=== PATIENT | male | born 1945 | race Hispanic/Latino ===

== ENCOUNTER 2020-05-08 19:30 | Emergency (ER) | payer MEDICARE ==
[~2020-05-08] VITALS: Ht 180.3 cm; Wt 82.6 kg
[2020-05-08] MEDS ORDERED: ONDANSETRON HCL INJ 2MG/ML 2ML 2 MG/ML VIAL IV NR (20:06)
[2020-05-08] MEDS ORDERED: SODIUM CHLORIDE 0.9% 1000ML 1,000 ML ONE (20:09)
[2020-05-08] MEDS ORDERED: ONDANSETRON HCL INJ 2MG/ML 2ML 2 MG/ML VIAL ONE (20:09)
[2020-05-08] MEDS ORDERED: SODIUM CHLORIDE 0.9% 1000ML 1,000 ML IV ONE (20:15)
[2020-05-08 20:16] LABS: BASOPHILS % 0.3 % (0.0-1.0); EOSINOPHILS # (AUTO) 0.2 (0.0-0.4); EOSINOPHILS % 2.8 % (0.0-6.0); HEMATOCRIT 42.9 % (38.2-49.6); HEMOGLOBIN 14.8 g/dL (14.0-18.0); LYMPHOCYTES # (AUTO) 0.7 (1.0-3.2); LYMPHOCYTES % 8.4 % (18.0-39.1); MEAN CORPUSCULAR HEMOGLOBIN 33.4 pg (28-32); MEAN CORPUSCULAR HGB CONC 34.5 g/dL (31-35); MEAN CORPUSCULAR VOLUME 96.8 fL (81-99); MONOCYTES # (AUTO) 0.4 (0.2-0.8); MONOCYTES % 4.6 % (4.4-11.3); NEUTROPHILS # (AUTO) 7.2 (2.1-6.9); NEUTROPHILS % 83.6 % (38.7-80.0); PLATELET COUNT 134 x10e3/uL (140-360); RED BLOOD COUNT 4.43 x10e6/uL (4.3-5.7); RED CELL DISTRIBUTION WIDTH 12.9 % (11.7-14.4)
--- NOTE | 2020-05-08 20:22 | Diagnostic Imaging Report ---
EXAMINATION: PA and lateral views of the chest. COMPARISON: None CLINICAL HISTORY: Vomiting after eating shrimp DISCUSSION: Lines/tubes: None. Lungs: Lungs are well-inflated. Biapical pleuroparenchymal scarring. Linear opacities and increased lucency in the upper lobes likely reflect COPD changes and scarring. No consolidation or pulmonary edema. Pleura: There is no pleural effusion or pneumothorax. Heart and mediastinum: Cardiomediastinal silhouette is unremarkable. Pulmonary vasculature is normal. Bones and soft tissues: No acute bony abnormalities. Degenerative changes in the thoracic spine IMPRESSION: COPD changes, without acute cardiopulmonary abnormalities. Signed by: Dr. Darek Barboza M.D. on 05/08/2020 8:18 PM
[2020-05-08 20:32] LABS: ALANINE AMINOTRANSFERASE 46 IU/L (0-55); ALBUMIN 4.3 g/dL (3.5-5.0); ALBUMIN/GLOBULIN RATIO 1.5 (0.8-2.0); ALKALINE PHOSPHATASE 55 IU/L (40-150); ANION GAP 15.1 mmol/L (8-16); BLOOD UREA NITROGEN 12 mg/dL (7-26); BUN/CREATININE RATIO 14 (6-25); CALCIUM 9.2 mg/dL (8.4-10.2); CARBON DIOXIDE 25 mmol/L (22-29); CHLORIDE 103 mmol/L (98-107); CREATINE KINASE 185 IU/L (30-200); CREATININE, SERUM 0.83 mg/dL (0.72-1.25); EST GLOMERULAR FILTRATION RATE > 60 ML/MIN (60-); GLUCOSE 153 mg/dL (74-118); POTASSIUM 4.1 mmol/L (3.5-5.1); SODIUM 139 mmol/L (136-145)
--- NOTE | 2020-05-08 21:20 | Emergency Department Note ---
History of Present Illnes History of Present Illness Chief Complaint: Abdominal Complaints History of Present Illness This is a 75 year old male arrives to the ED with complaints of nausea after having day old shrimp and beer. Patient denies any abdominal pain, denies any fever or chills. Patient is a diabetic but denies any chest pain.. Historian: Patient Arrival Mode: Car 411 Directory Assistance Operator Required: No Onset (how long ago): hour(s) Radiation: Reports non-radiation Severity: mild Duration (how long): hour(s) Timing of current episode: intermittent Progression: unchanged Relieving factors: none Exacerbating factors: none Past Medical/Family History Physician Review I have reviewed the patient's past medical and family history. Any updates have been documented here. Past Medical History Recent Fever: No Clinical Suspicion of Infectio: No New/Unexplained Change in Ment: No Past Medical History: Hypertension, Diabetes Other Medical History: BPH Past Surgical History: None Social History Smoking Cessation: Never Smoker Counseling Performed: No Alcohol Use: Daily Any Illegal Drug Use: No TB Exposure/Symptoms: No Physically hurt or threatened: No Family History Family history of heart diseas: No Other Last Tetanus: UTD Any Pre-Existing Lines (PICC,: No Is patient up to date on immun: Yes Last Flu: DENIES Last Pneumovax: DENIES Review of Systems Review of Systems Constitutional: Reports no symptoms EENTM: Reports no symptoms Cardiovascular: Reports no symptoms Respiratory: Reports no symptoms Gastrointestinal: Reports as per HPI, Reports nausea; Denies abdominal pain, Denies diarrhea, Denies vomiting Genitourinary: Reports no symptoms Musculoskeletal: Reports no symptoms Integumentary: Reports no symptoms Neurological: Reports no symptoms Psychological: Reports no symptoms Endocrine: Reports no symptoms Hematological/Lymphatic: Reports no symptoms Physical Exam Related Data Allergies: Coded Allergies: No Known Allergies (Unverified , 05/08/20) Triage Vital Signs Vital Signs Date Time Temp Pulse Resp B/P (MAP) Pulse Ox O2 Delivery O2 Flow Rate FiO2 05/08/20 19:47 97.8 84 17 142/80 98 Vital signs reviewed: Yes Physical Exam CONSTITUTIONAL Constitutional: Present well-developed, Present well-nourished HENT HENT: Present normocephalic, Present atraumatic, Present oropharynx clear/moist, Present nose normal HENT L/R: Present left ext ear normal, Present right ext ear normal EYES Eyes: Reports PERRL, Reports conjunctivae normal NECK Neck: Present ROM normal PULMONARY Pulmonary: Present effort normal, Present breath sounds normal CARDIOVASCULAR Cardiovascular: Present regular rhythm, Present heart sounds normal, Present capillary refill normal, Present normal rate GASTROINTESTINAL Abdominal: Present soft, Present nontender, Present bowel sounds normal GENITOURINARY Genitourinary: Present exam deferred SKIN Skin: Present warm, Present dry MUSCULOSKELETAL Musculoskeletal: Present ROM normal NEUROLOGICAL Neurological: Present alert, Present oriented x 3, Present no gross motor or sensory deficits PSYCHOLOGICAL Psychological: Present mood/affect normal, Present judgement normal Results Laboratory Result Diagram: 05/08/20199905/08/201999 Laboratory Laboratory Tests Test 05/08/20 20:00 White Blood Count 8.66 x10e3/uL (4.8-10.8) Red Blood Count 4.43 x10e6/uL (4.3-5.7) Hemoglobin 14.8 g/dL (14.0-18.0) Hematocrit 42.9 % (38.2-49.6) Mean Corpuscular Volume 96.8 fL (81-99) Mean Corpuscular Hemoglobin 33.4 pg (28-32) Mean Corpuscular Hemoglobin Concent 34.5 g/dL (31-35) Red Cell Distribution Width 12.9 % (11.7-14.4) Platelet Count 134 x10e3/uL (140-360) Neutrophils (%) (Auto) 83.6 % (38.7-80.0) Lymphocytes (%) (Auto) 8.4 % (18.0-39.1) Monocytes (%) (Auto) 4.6 % (4.4-11.3) Eosinophils (%) (Auto) 2.8 % (0.0-6.0) Basophils (%) (Auto) 0.3 % (0.0-1.0) Neutrophils # (Auto) 7.2 (2.1-6.9) Lymphocytes # (Auto) 0.7 (1.0-3.2) Monocytes # (Auto) 0.4 (0.2-0.8) Eosinophils # (Auto) 0.2 (0.0-0.4) Basophils # (Auto) 0.0 (0.0-0.1) Absolute Immature Granulocyte (auto 0.03 x10e3/uL (0-0.1) Sodium Level 139 mmol/L (136-145) Potassium Level 4.1 mmol/L (3.5-5.1) Chloride Level 103 mmol/L (98-107) Carbon Dioxide Level 25 mmol/L (22-29) Anion Gap 15.1 mmol/L (8-16) Blood Urea Nitrogen 12 mg/dL (7-26) Creatinine 0.83 mg/dL (0.72-1.25) Estimat Glomerular Filtration Rate > 60 ML/MIN (60-) BUN/Creatinine Ratio 14 (6-25) Glucose Level 153 mg/dL (74-118) Calcium Level 9.2 mg/dL (8.4-10.2) Total Bilirubin 0.7 mg/dL (0.2-1.2) Aspartate Amino Transf (AST/SGOT) 33 IU/L (5-34) Alanine Aminotransferase (ALT/SGPT) 46 IU/L (0-55) Alkaline Phosphatase 55 IU/L (40-150) Creatine Kinase 185 IU/L (30-200) Creatine Kinase MB 2.00 ng/mL (0-5.0) Troponin I < 0.001 ng/mL (0-0.300) Total Protein 7.1 g/dL (6.5-8.1) Albumin 4.3 g/dL (3.5-5.0) Globulin 2.8 g/dL (2.3-3.5) Albumin/Globulin Ratio 1.5 (0.8-2.0) Lab results reviewed: Yes Procedures 12 Lead ECG Interpretation ECG Interpretation : ECG: ECG 1 Prior ECG tracings: reviewed Rhythm: sinus rhythm Rate: normal QRS axis: left Conduction: LAFB ST segments normal: Yes T waves normal: Yes Assessment & Plan Medical Decision Making MDM 75-year-old well-appearing male arrives to the ED with complaints of nausea after having old strength. Patient well-appearing on exam, a cardiac workup was performed given patient's history of diabetes and atypical presentation of ACS. Patient's EKG, lab work including cardiac markers are normal. Patient received Zofran and a liter fluids in the emergency department and reported complete resolution of nausea wished to be discharged home. Patient with no elevated WBC count, no concerns for an acute intra-abdominal surgical or infectious process at time of discharge. This patient presents with abdominal pain of unclear etiology. Their evaluation has not identified a emergent etiology for the abdominal pain. Specifically, given the very benign exam, normal laboratory studies, and lack of significant risk factors, I have a very low suspicion for appendicitis, ischemic bowel, bowel perforation, or any other life threatening disease. I have discussed with the patient the level of uncertainty with undifferentiated abdominal pain and clearly explained the need to follow-up as noted on the discharge instructions, or return to the Emergency Department immediately if the pain worsens, develops fever, persistent and uncontrollable vomiting, or for any new symptoms or concerns. I discussed with the patient that this presentation today for abdominal pain could represent a significant risk for an acute abdominal process. Although the tests in the ED were essentially normal, there is still a possibility of a process such as appendicitis, diverticulitis, cholecystitis, ulcer, early bowel obstruction, mesenteric ischemia, kidney stone, or even kidney infection which could subsequently cause disability or . The patient understands that they must return within 24 hours for a recheck or see their physician within 24 hours for re-exam due to the possibility of significant surgical or medical process. Assessment & Plan Final Impression: (1) Gastritis Depart Disposition: HOME, SELF-CARE Last Vital Signs Date Time Temp Pulse Resp B/P (MAP) Pulse Ox O2 Delivery O2 Flow Rate FiO2 05/08/20 19:47 97.8 84 17 142/80 98 Medications in the ED Ondansetron HCl 4 mg STK-MED ONCE .ROUTE ; Start 05/08/20 at 20:09; Stop 05/08/20 at 20:03; Status DC Sodium Chloride 1,000 ml @ ud STK-MED ONCE .ROUTE ; Start 05/08/20 at 20:09; Stop 05/08/20 at 20:03; Status DC Sodium Chloride 1,000 ml @ 999 mls/hr Q1H1M ONCE IV Last administered on 05/08/20at 20:24; Admin Dose 999 MLS/HR; Start 05/08/20 at 20:15; Stop 05/08/20 at 21:15 Ondansetron HCl 4 mg NOW IV Last administered on 05/08/20at 20:24; Admin Dose 4 MG; Start 05/08/20 at 20:06; Stop 05/08/20 at 20:59; Status DC SARA YEAGER, May 08, 2020 21:20
[2020-05-08 23:01] VITALS: BP 125/68
== END 2020-05-08 23:16 | disposition home or self-care (01) ==
LOC: ER 19:30
DX: R11.2 Nausea with vomiting, unspecified (principal); K29.70 Gastritis, unspecified, without bleeding; E11.65 Type 2 diabetes mellitus with hyperglycemia; I10 Essential (primary) hypertension
CPT/HCPCS: 36415; 71046; 80053; 82550; 82553; 84484; 85025; 93005; 99283; J2405; J7030

== ENCOUNTER 2020-05-24 21:45 | Inpatient (IN) | payer MEDICARE, OTHER ==
[~2020-05-24] VITALS: Ht 172.7 cm; Wt 82.6 kg
--- NOTE | 2020-05-24 21:54 | Emergency Department Note ---
History of Present Illnes History of Present Illness History of Present Illness This is a 75 year old male presents to the ED after a 400 lb pipe fell onto his left leg for which he was pinned down for approximately 1 hour. Time of injury was 1300. Historian: Patient, Family Member Arrival Mode: Car History limited by: language barrier Sole Inker Required: Yes Onset (how long ago): hour(s) (8) Radiation: Reports extremity, Reports other Severity: moderate Onset quality: sudden Duration (how long): hour(s) Timing of current episode: constant Progression: unchanged Chronicity: new Context: Reports trauma/injury Relieving factors: immobilization, rest Exacerbating factors: movement Associated symptoms: Reports denies other symptoms Treatments prior to arrival: none Past Medical/Family History Physician Review I have reviewed the patient's past medical and family history. Any updates have been documented here. Past Medical History Recent Fever: No Clinical Suspicion of Infectio: No New/Unexplained Change in Ment: No Past Medical History: Hypertension, Diabetes Other Medical History: BPH Past Surgical History: None Social History Smoking Cessation: Never Smoker Alcohol Use: None Any Illegal Drug Use: No Other Last Tetanus: UTD Review of Systems Review of Systems Constitutional: Reports no symptoms EENTM: Reports no symptoms Cardiovascular: Reports no symptoms Respiratory: Reports no symptoms Gastrointestinal: Reports no symptoms Genitourinary: Reports no symptoms Musculoskeletal: Reports muscle pain Integumentary: Reports no symptoms Neurological: Reports no symptoms Psychological: Reports no symptoms Endocrine: Reports no symptoms Hematological/Lymphatic: Reports no symptoms Physical Exam Related Data Allergies: Coded Allergies: No Known Allergies (Unverified , 05/08/20) Triage Vital Signs Vital Signs Date Time Temp Pulse Resp B/P (MAP) Pulse Ox O2 Delivery O2 Flow Rate FiO2 05/24/20 21:59 98.5 107 20 111/73 99 Room Air Vital signs reviewed: Yes Physical Exam CONSTITUTIONAL Constitutional: Present well-developed, Present well-nourished HENT HENT: Present normocephalic, Present atraumatic, Present oropharynx clear/moist, Present nose normal HENT L/R: Present left ext ear normal, Present right ext ear normal EYES Eyes: Reports PERRL, Reports conjunctivae normal NECK Neck: Present ROM normal PULMONARY Pulmonary: Present effort normal, Present breath sounds normal CARDIOVASCULAR Cardiovascular: Present regular rhythm, Present heart sounds normal, Present capillary refill normal, Present normal rate GASTROINTESTINAL Abdominal: Present soft, Present nontender, Present bowel sounds normal GENITOURINARY Genitourinary: Present exam deferred SKIN Skin: Present other (leg abrasion/ skin tear proximal 1/3 left leg with 2 cm puncture wound ) MUSCULOSKELETAL Musculoskeletal: Present tenderness (lumbar) NEUROLOGICAL Neurological: Present alert, Present oriented x 3, Present no gross motor or sensory deficits PSYCHOLOGICAL Psychological: Present mood/affect normal, Present judgement normal Results Laboratory Lab results reviewed: Yes Laboratory comments Laboratory Tests Test 05/24/20 22:10 White Blood Count 10.71 x10e3/uL (4.8-10.8) Red Blood Count 4.23 x10e6/uL (4.3-5.7) Hemoglobin 14.3 g/dL (14.0-18.0) Hematocrit 40.9 % (38.2-49.6) Mean Corpuscular Volume 96.7 fL (81-99) Mean Corpuscular Hemoglobin 33.8 pg (28-32) Mean Corpuscular Hemoglobin Concent 35.0 g/dL (31-35) Red Cell Distribution Width 13.1 % (11.7-14.4) Platelet Count 200 x10e3/uL (140-360) Neutrophils (%) (Auto) 79.5 % (38.7-80.0) Lymphocytes (%) (Auto) 10.7 % (18.0-39.1) Monocytes (%) (Auto) 7.1 % (4.4-11.3) Eosinophils (%) (Auto) 1.7 % (0.0-6.0) Basophils (%) (Auto) 0.5 % (0.0-1.0) Neutrophils # (Auto) 8.5 (2.1-6.9) Lymphocytes # (Auto) 1.2 (1.0-3.2) Monocytes # (Auto) 0.8 (0.2-0.8) Eosinophils # (Auto) 0.2 (0.0-0.4) Basophils # (Auto) 0.1 (0.0-0.1) Absolute Immature Granulocyte (auto 0.05 x10e3/uL (0-0.1) Sodium Level 137 mmol/L (136-145) Potassium Level 4.3 mmol/L (3.5-5.1) Chloride Level 103 mmol/L (98-107) Carbon Dioxide Level 21 mmol/L (22-29) Anion Gap 17.3 mmol/L (8-16) Blood Urea Nitrogen 19 mg/dL (7-26) Creatinine 1.54 mg/dL (0.72-1.25) Estimat Glomerular Filtration Rate 44 ML/MIN (60-) BUN/Creatinine Ratio 12 (6-25) Glucose Level 180 mg/dL (74-118) Calcium Level 9.1 mg/dL (8.4-10.2) Total Bilirubin 1.1 mg/dL (0.2-1.2) Aspartate Amino Transf (AST/SGOT) 55 IU/L (5-34) Alanine Aminotransferase (ALT/SGPT) 46 IU/L (0-55) Alkaline Phosphatase 66 IU/L (40-150) Creatine Kinase 1730 IU/L (30-200) Creatine Kinase MB 9.40 ng/mL (0-5.0) Troponin I 0.008 ng/mL (0-0.300) Total Protein 7.4 g/dL (6.5-8.1) Albumin 4.1 g/dL (3.5-5.0) Globulin 3.3 g/dL (2.3-3.5) Albumin/Globulin Ratio 1.2 (0.8-2.0) Imaging Imaging results reviewed: Yes Impressions [place] [address] Patient Name: ALICIA SCHNEIDER MR #: [id number] : 1945 Age/Sex: 75/M Req #: [id number] Adm Physician: Ordered by: JEANNIE TOMAS DO Report #: [id number] Location: ER Room/Bed: Procedure: [id number] DX/LOWER LEG LEFT Exam Date: 05/24/20 Exam Time: 0 REPORT STATUS: Signed Exam: Left lower leg, 4 views History: Trauma to the lower leg and back today Comparison: None. Findings: There is normal bone mineralization. No acute, displaced fracture or dislocation. Ankle mortise and knee joints are relatively well-preserved. Mild patellar osteophytosis. Extensive vascular calcifications. No soft tissue swelling or soft tissue defect. Impression: 1. No acute abnormalities. Signed by: Dr. Mary Barboza M.D. on 05/24/2020 11:25 PM Dictated By: MARY BARBOZA MD 24 Transcribed By: MIGUELINA on 05/24/202324 COPY TO: JEANNIE TOMAS DO~ [place] [address] Patient Name: ALICIA SCHNEIDER MR #: [id number] : 1945 Age/Sex: 75/M Req #: [id number] Adm Physician: Ordered by: JEANNIE TOMAS DO Report #: [id number] Location: ER Room/Bed: ____ Procedure: [id number] DX/LUMBAR 3 VIEW Exam Date: 05/24/20 Exam Time: 0 REPORT STATUS: Signed EXAMINATION: Lumbar spine series. CLINICAL HISTORY: Trauma to lower back and leg COMPARISON: None. DISCUSSION: 3 views of the lumbar spine are submitted for interpretation. Five nonrib-bearing lumbar type vertebral bodies are identified. No acute, displaced fractures or subluxation. No spondylolisthesis. Multilevel degenerated discs in the lower thoracic and lumbosacral spine, worse at T11-T12, L1-L2, L4-L5 and L5-S1, with moderate osteophytosis. No aggressive lytic or suspicious sclerotic lesions. Vertebral body heights are preserved. Sacroiliac joints are unremarkable. Nonobstructive bowel gas pattern. IMPRESSION: 1. No acute abnormalities. 2. Moderate degenerative changes in the lower thoracic and lumbosacral spine. The staff physician below has personally reviewed this exam on the date of dictation. Signed by: Dr. Mary Barboza M.D. on 05/24/2020 11:27 PM Dictated By: MARY BARBOZA MD 26 Transcribed By: MIGUELINA on 05/24/202326 COPY TO: JEANNIE TOMAS DO~ Assessment & Plan Medical Decision Making MDM Diff Dx: osteomyelitis, rhabdomyolysis, fracture, laceration, compartment syndrome, lumbar sprain, lumbar strain, lumbar fx Assessment & Plan Final Impression: (1) Rhabdomyolysis (2) Open leg wound (3) Back pain Depart Disposition: ADMITTED Medications in the ED Tetanus/ Diphtheria Toxoids 0.5 ml ONCE ONCE IM Last administered on 05/24/20at 22:16; Admin Dose 0.5 ML; Start 05/24/20 at 22:00; Stop 05/24/20 at 22:01; Status DC Sodium Chloride 1,000 ml @ 0 mls/hr Q0M STAT IV Last administered on 05/24/20at 22:17; Admin Dose 999 MLS/HR; Start 05/24/20 at 22:00; Stop 05/24/20 at 22:02; Status DC Sodium Chloride 1,000 ml @ 125 mls/hr Q8H IV ; Start 05/24/20 at 23:45; Stop 06/23/20 at 23:44 Piperacillin Sod/ Tazobactam Sod 50 ml @ 50 mls/hr Q6H IV ; Start 05/25/20 at 00:00; Stop 06/01/20 at 00:00 JEANNIE TOMAS DO May 24, 2020 21:54
[2020-05-24] MEDS ORDERED: TETANUS/DIPHTHERIA TOX ADULT 0.5 ML SYR IM ONE (22:00)
[2020-05-24] MEDS ORDERED: SODIUM CHLORIDE 0.9% 1000ML 1,000 ML IV STA (22:00)
[2020-05-24 22:18] LABS: BASOPHILS # (AUTO) 0.1 (0.0-0.1); BASOPHILS % 0.5 % (0.0-1.0); EOSINOPHILS # (AUTO) 0.2 (0.0-0.4); EOSINOPHILS % 1.7 % (0.0-6.0); HEMATOCRIT 40.9 % (38.2-49.6); HEMOGLOBIN 14.3 g/dL (14.0-18.0); LYMPHOCYTES # (AUTO) 1.2 (1.0-3.2); LYMPHOCYTES % 10.7 % (18.0-39.1); MEAN CORPUSCULAR HEMOGLOBIN 33.8 pg (28-32); MEAN CORPUSCULAR VOLUME 96.7 fL (81-99); MONOCYTES # (AUTO) 0.8 (0.2-0.8); MONOCYTES % 7.1 % (4.4-11.3); NEUTROPHILS # (AUTO) 8.5 (2.1-6.9); NEUTROPHILS % 79.5 % (38.7-80.0); PLATELET COUNT 200 x10e3/uL (140-360); RED BLOOD COUNT 4.23 x10e6/uL (4.3-5.7); RED CELL DISTRIBUTION WIDTH 13.1 % (11.7-14.4)
[2020-05-24 22:38] LABS: ALBUMIN 4.1 g/dL (3.5-5.0); ALBUMIN/GLOBULIN RATIO 1.2 (0.8-2.0); ANION GAP 17.3 mmol/L (8-16); CALCIUM 9.1 mg/dL (8.4-10.2); CREATININE, SERUM 1.54 mg/dL (0.72-1.25); POTASSIUM 4.3 mmol/L (3.5-5.1)
[2020-05-24 22:45] LABS: CREATINE KINASE MB 9.4 ng/mL (0-5.0)
--- NOTE | 2020-05-24 23:28 | Diagnostic Imaging Report ---
Exam: Left lower leg, 4 views History: Trauma to the lower leg and back today Comparison: None. Findings: There is normal bone mineralization. No acute, displaced fracture or dislocation. Ankle mortise and knee joints are relatively well-preserved. Mild patellar osteophytosis. Extensive vascular calcifications. No soft tissue swelling or soft tissue defect. Impression: 1. No acute abnormalities. Signed by: Dr. Darek Barboza M.D. on 05/24/2020 11:25 PM
--- NOTE | 2020-05-24 23:30 | Diagnostic Imaging Report ---
EXAMINATION: Lumbar spine series. CLINICAL HISTORY: Trauma to lower back and leg COMPARISON: None. DISCUSSION: 3 views of the lumbar spine are submitted for interpretation. Five nonrib-bearing lumbar type vertebral bodies are identified. No acute, displaced fractures or subluxation. No spondylolisthesis. Multilevel degenerated discs in the lower thoracic and lumbosacral spine, worse at T11-T12, L1-L2, L4-L5 and L5-S1, with moderate osteophytosis. No aggressive lytic or suspicious sclerotic lesions. Vertebral body heights are preserved. Sacroiliac joints are unremarkable. Nonobstructive bowel gas pattern. IMPRESSION: 1. No acute abnormalities. 2. Moderate degenerative changes in the lower thoracic and lumbosacral spine. The staff physician below has personally reviewed this exam on the date of dictation. Signed by: Dr. Darek Barboza M.D. on 05/24/2020 11:27 PM
[2020-05-25] VITALS (8 sets, daily range): BP systolic 125–131; BP diastolic 68–78
[2020-05-25] MEDS: PIPER-TAZ 3.375 GM 50 ML IV SCH ×3 (01:20→17:51)
[2020-05-25] MEDS: SODIUM CHLORIDE 0.9% 1000ML 1,000 ML IV SCH ×3 (01:20→17:50)
--- NOTE | 2020-05-25 04:55 | Diagnostic Imaging Report ---
Exam: Right femur, 4 views History: Hip pain, pipe fell on leg Comparison: None. Findings: There is normal bone mineralization. No acute, displaced fracture or dislocation. Joint spaces preserved. No abnormal soft tissue calcification or soft tissue defect. No soft tissue swelling. Impression: 1. No acute abnormalities. Signed by: Dr. Darek Barboza M.D. on 05/25/2020 4:52 AM
--- NOTE | 2020-05-25 06:30 | NUR ---
Patient received from ER via stretcher. AAO x 3. No complaints of pain or respiratory distress. Telemetry in place. Patient oriented to room, call light and plan of care. Safety measures in place. Patient instructed to call for assistance when needed. Call light within reach.
[2020-05-25 08:05] LABS: BASOPHILS % 0.4 % (0.0-1.0); EOSINOPHILS # (AUTO) 0.1 (0.0-0.4); EOSINOPHILS % 1.4 % (0.0-6.0); HEMATOCRIT 40.7 % (38.2-49.6); HEMOGLOBIN 13.9 g/dL (14.0-18.0); LYMPHOCYTES # (AUTO) 0.8 (1.0-3.2); LYMPHOCYTES % 11.7 % (18.0-39.1); MEAN CORPUSCULAR HEMOGLOBIN 33.3 pg (28-32); MEAN CORPUSCULAR HGB CONC 34.2 g/dL (31-35); MEAN CORPUSCULAR VOLUME 97.4 fL (81-99); MONOCYTES # (AUTO) 0.6 (0.2-0.8); MONOCYTES % 8.1 % (4.4-11.3); NEUTROPHILS # (AUTO) 5.4 (2.1-6.9); NEUTROPHILS % 78.1 % (38.7-80.0); PLATELET COUNT 154 x10e3/uL (140-360); RED BLOOD COUNT 4.18 x10e6/uL (4.3-5.7)
[2020-05-25 08:27] LABS: ALANINE AMINOTRANSFERASE 42 IU/L (0-55); ALBUMIN 3.9 g/dL (3.5-5.0); ALBUMIN/GLOBULIN RATIO 1.2 (0.8-2.0); ALKALINE PHOSPHATASE 56 IU/L (40-150); ANION GAP 11.4 mmol/L (8-16); BLOOD UREA NITROGEN 16 mg/dL (7-26); BUN/CREATININE RATIO 19 (6-25); CALCIUM 8.6 mg/dL (8.4-10.2); CARBON DIOXIDE 26 mmol/L (22-29); CHLORIDE 105 mmol/L (98-107); CREATININE, SERUM 0.84 mg/dL (0.72-1.25); EST GLOMERULAR FILTRATION RATE > 60 ML/MIN (60-); GLUCOSE 139 mg/dL (74-118); POTASSIUM 4.4 mmol/L (3.5-5.1); SODIUM 138 mmol/L (136-145)
[2020-05-25 08:35] LABS: CREATINE KINASE MB 5.9 ng/mL (0-5.0)
[2020-05-25] MEDS ORDERED: LISINOPRIL10 MG PO (14:13)
[2020-05-25] MEDS ORDERED: ELIQUIS5 M1 (14:17)
[2020-05-25] MEDS ORDERED: GLIPIZIDE5 MG PO (14:17)
[2020-05-25] MEDS ORDERED: FLOMAX0.4 MG PO (14:17)
[2020-05-25] MEDS ORDERED: FINASTERIDE5 MG PO (14:17)
[2020-05-25] MEDS ORDERED: ATORVASTATIN CA10 MG PO (14:17)
[2020-05-25] MEDS ORDERED: METFORMIN HCL500 MG PO (14:17)
--- NOTE | 2020-05-25 14:54 | NUR ---
WOUND CARE CONSULT FOR 75 YO MALE HX OF LEFT LEG INJURY FLORIDALMA 18 ON CONSERVATIVE PUP STATUS AND INTERVENTIONS AND VISCO MATTRESS LABS: WBC-6.95 HGB_13.9 GLUCOSE-139 SKIN ASSESSMENT COMPLETE PATIENT PRESENTS WITH LEFT KNEE ABRASION R/T FALL 10CM X2.5CM X0.1CM RECOMMENDATIONS: NURSING TO CONTINUE TO MAINTAIN CONSERVATIVE PUP STATUS AND INTERVENTIONS AND VISCO MATTRESS NURSING TO CONTINUE TO ASSIST PATIENT OUT OF BED FOR MEALS AND MUCH TOLERATED NURSING TO CONTINUE TO ASSIST PATIENT NEEDED WITH MEALS AND NUTRITIONAL SUPPLEMENTS TO ENSURE PROPER REQUIREMENTS FOR HEALING NURSING TO CONTINUE TO OFFLOAD FEET AND HEELS NEEDED WITH PILLOW SUSPENSION WHEN IN BED NURSING TO CLEAN LEFT KNEE ABRASION WITH NORMAL SALINE DAILY AND APPLY BACITRACIN OINTMENT AND ALLEVYN FOAM DRESSING Addendum: 05/25/20 at 1459 by Jonathan Lopez RN Amended: Links added.
[2020-05-25 17:54] LABS: CREATINE KINASE MB 3.8 ng/mL (0-5.0)
--- NOTE | 2020-05-25 19:20 | NUR ---
Patient received sitting up in bed. AAO x 4. Patient had no complaints of pain. Respirations even and non-labored. IVF infusing at 125 cc/hr. Safety measures in place. Patient instructed to call for assistance when needed. Call light within reach.
[2020-05-25] MEDS ORDERED: METOPROLOL TARTRATE INJ 1 MG/ML VIAL IV PRN (20:45)
--- NOTE | 2020-05-25 20:49 | NUR ---
gis mapping technician called stating patient's cardiac rhythm is fluctuating between SR with PVCs to AFIB. This nurse spoke to patient and patient stated he does not have cardiac issues even though he is on Eliquis [address] Lorenzo notified. New order received for Metoprolol 5 mg IV Q4H PRN ; renew home medications; place Eliquis on hold; consult Dr. Miles and obtain CBC, BMP in am.
[2020-05-25] MEDS: ATORVASTATIN 10 MG TAB PO SCH (22:23)
[2020-05-25] MEDS: FINASTERIDE 5 MG TAB PO SCH (22:23)
[2020-05-26] VITALS (8 sets, daily range): BP systolic 125–136; BP diastolic 45–71
[2020-05-26] MEDS: PIPER-TAZ 3.375 GM 50 ML IV SCH ×4 (01:06→17:16)
[2020-05-26] MEDS: SODIUM CHLORIDE 0.9% 1000ML 1,000 ML IV SCH ×3 (01:17→17:15)
[2020-05-26 05:48] LABS: BASOPHILS % 0.6 % (0.0-1.0); EOSINOPHILS # (AUTO) 0.2 (0.0-0.4); EOSINOPHILS % 3.9 % (0.0-6.0); HEMATOCRIT 37.6 % (38.2-49.6); LYMPHOCYTES # (AUTO) 0.9 (1.0-3.2); LYMPHOCYTES % 16.4 % (18.0-39.1); MEAN CORPUSCULAR HEMOGLOBIN 33.9 pg (28-32); MEAN CORPUSCULAR HGB CONC 34.6 g/dL (31-35); MEAN CORPUSCULAR VOLUME 97.9 fL (81-99); MONOCYTES # (AUTO) 0.4 (0.2-0.8); MONOCYTES % 7.8 % (4.4-11.3); NEUTROPHILS # (AUTO) 3.8 (2.1-6.9); NEUTROPHILS % 71.1 % (38.7-80.0); PLATELET COUNT 130 x10e3/uL (140-360); RED BLOOD COUNT 3.84 x10e6/uL (4.3-5.7)
--- NOTE | 2020-05-26 06:14 | NUR ---
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 PMH: PAF, HTN, BPH, HLD, DM2, PSHx: none ALlergies; see emr Fh/SH; single; no cigs meds; see MAR ROS: no f/c/s/N/V/D/BRONSON/cp/sob/confusion/vision changes/ v/s; revd PE tired appearing anicteric ns1s2 mod bs soft nt nd no e/t left foreleg with bruise/DTI ; some bruising on B/L thighs a&ox3; mackay skin dry flat affect labs/meds revd A/P: 75yoM Leg wound- due to injury on job; LWC; IV abx; consult employment service specialist Acute rhabdomyolysis- IVF GILBERT- IVF PAF- hold AC; use BB/dig; A.fib with RVR- IV BB; IV Dig; start PO tomorrow DM2- hba1c/lipids; ADA diet HTn- cont home meds BPH- cont flomax HLD_ cont statin Prop: ambulate with PT Dispo; start PT; wound care; AV blockade Omar Lorenzo MD, PHD
[2020-05-26] MEDS ORDERED: METOPROLOL TARTRATE INJ 1 MG/ML VIAL IV PRN (06:15)
[2020-05-26 06:28] LABS: ANION GAP 11.1 mmol/L (8-16); BLOOD UREA NITROGEN 13 mg/dL (7-26); BUN/CREATININE RATIO 17 (6-25); CALCIUM 8.3 mg/dL (8.4-10.2); CARBON DIOXIDE 24 mmol/L (22-29); CHLORIDE 107 mmol/L (98-107); CREATININE, SERUM 0.77 mg/dL (0.72-1.25); EST GLOMERULAR FILTRATION RATE > 60 ML/MIN (60-); GLUCOSE 102 mg/dL (74-118); POTASSIUM 4.1 mmol/L (3.5-5.1); SODIUM 138 mmol/L (136-145)
[2020-05-26] MEDS ORDERED: ONDANSETRON HCL INJ 2MG/ML 2ML 2 MG/ML VIAL IV PRN (06:30)
[2020-05-26] MEDS ORDERED: DEXTROSE 50% SYRINGE 50 ML IV PRN (06:30)
[2020-05-26] MEDS ORDERED: DIGOXIN INJ 0.25 MG/ML 2 ML AMP IV ONE ×2 (06:30→12:00)
[2020-05-26] MEDS ORDERED: ACETAMINOPHEN 325 MG TAB PO PRN (06:30)
[2020-05-26] MEDS ORDERED: DOCUSATE SODIUM 100 MG CAP PO PRN (06:30)
[2020-05-26] MEDS ORDERED: ZOLPIDEM TARTRATE 5 MG TAB PO PRN (06:30)
--- NOTE | 2020-05-26 06:44 | NUR ---
Patient's HR elevated ---[address] service technician[address]. Lorenzo notified. New orders received for Metoprolol 5 mg IV Q2H now and in the next 6 hours. Also, order received for new "Consult"---Ivana.
--- NOTE | 2020-05-26 07:00 | NUR ---
Walking rounds done. Patient resting comfortably. Shift report given to oncoming nurse.
[2020-05-26 07:27] LABS: CHOL/HDL RATIO 2.3 (3.9-4.7)
[2020-05-26] MEDS: INSULIN REGULAR, HUMAN 100 UNIT/1 ML 3ML VIAL SQ SCH ×5 (07:30→22:12)
[2020-05-26] MEDS ORDERED: GLIPIZIDE 5 MG TAB PO SCH (07:30)
[2020-05-26 07:41] LABS: THYROID STIMULATING HORMONE 4.132 uIU/mL (0.350-4.940)
[2020-05-26] MEDS ORDERED: METFORMIN HCL 500 MG TAB PO SCH (08:00)
[2020-05-26] MEDS ORDERED: LISINOPRIL 10 MG TAB PO SCH (09:00)
--- NOTE | 2020-05-26 09:57 | Consultation ---
DATE OF CONSULTATION: Wound Consultation HISTORY OF PRESENT ILLNESS: A 75-year-old male patient, admitted with left leg and bilateral upper thigh wound following a trauma when mary fell on his leg at work, like 400 pounds weight. The patient has abrasion, skin tear, and DTI to the left lateral leg from injury. The patient speaks [place]. He is awake, alert, has pain. Range of motion of the joints normal. SOCIAL HISTORY: He denies smoking. PAST MEDICAL HISTORY: BPH, hypertension, and diabetes mellitus. ALLERGIES: NONE. MEDICATIONS: Lisinopril 20 mg daily, digoxin IV since his monitor shows tachycardia and atrial fibrillation, glipizide 10 mg daily, and Ambien 5 mg daily. PHYSICAL EXAMINATION: VITAL SIGNS: Height 68 inches, weight 182 pounds. HEENT: Normal. NECK: No JVD. LUNGS: Bilateral air entry normal. ABDOMEN: Soft. Bowel sounds normal. EXTREMITIES: Lower extremities; both anterior thigh, the patient has abrasion, left lateral leg. The patient has a wound with 2 puncture wounds with some necrosis of the skin, tender to touch. Serosanguineous drainage present. Range of motion of joints normal. LABORATORY DATA: CBC; white blood count 5.36 and hemoglobin 13. Sodium 130, potassium 4.1, BUN 13, and creatinine 0.77. CK 1331. TSH normal. ASSESSMENT: Injury to the left leg and both anterior upper thigh with a puncture wound on the left leg, high risk for infection, atrial fibrillation, diabetes mellitus, hypertension, and rhabdomyolysis. PLAN: We will apply SilvaSorb to the left anterior leg and Mepilex and keep on antibiotic. Thank you for consultation. We will follow up. Sim Abrams MD TG/MODL /[id number]
[2020-05-26] MEDS: LISINOPRIL 20 MG TAB PO SCH (10:29)
[2020-05-26] MEDS: TAMSULOSIN HCL 0.4 MG CAP PO SCH (10:29)
[2020-05-26] MEDS: BACITRACIN ZINC 15 GM OINT TOP SCH (10:30)
[2020-05-26] MEDS: ASPIRIN 81 MG ENTERIC COATED PO SCH (10:30)
--- NOTE | 2020-05-26 13:23 | NUR ---
Observation pt. Left message for Dr. Lorenzo regarding status/plan. Awaiting response.
--- NOTE | 2020-05-26 15:50 | Consultation ---
DATE OF CONSULTATION: 05/26/2020 Cardiology Consultation REQUESTING PHYSICIAN: Dr. Lorenzo. REASON FOR CONSULTATION: Atrial fibrillation. HISTORY OF PRESENT ILLNESS: This is a 75-year-old male with history of atrial fibrillation, diabetes mellitus, hypertension, and hyperlipidemia, who presented to the ER after an injury. He stated that he had a pipe fall on to his left leg and was pinned to the ground outside for approximately 1 hour. He was subsequently brought to the ER for further evaluation. He denies any chest pain, shortness of breath, palpitations, edema, orthopnea, PND, or lightheadedness. Labs were notable for elevated CK and he was admitted to the hospital for rhabdomyolysis. Overnight, he was noted to have atrial fibrillation with RVR for which Cardiology is consulted for evaluation. REVIEW OF SYSTEMS: Negative except as per HPI. PAST MEDICAL HISTORY: 1. Atrial fibrillation. 2. Diabetes mellitus. 3. Hypertension. 4. Hyperlipidemia. PAST SURGICAL HISTORY: Denies. ALLERGIES: NO KNOWN DRUG ALLERGIES. MEDICATIONS: Please see medication list. SOCIAL HISTORY: No tobacco or illicit drugs. He does drink two beers with dinner. FAMILY HISTORY: Denies. PHYSICAL EXAMINATION: VITAL SIGNS: Temperature 98.4 degrees, pulse 87, respiratory rate 20, blood pressure 155/59, oxygen saturation 100%. GENERAL: Well-developed, well-nourished man, in no acute distress. HEENT: Normocephalic, atraumatic. Pupils are equal. No scleral icterus. NECK: Supple. No thyroid or cervical lymphadenopathy. No carotid bruits. LUNGS: Clear to auscultate bilaterally. No wheeze or crackles heard. CARDIOVASCULAR: Normal rate. Regular rhythm. No murmur. Normal S1 and S2. ABDOMEN: Soft, nontender. EXTREMITIES: Ecchymosis and swelling noted on the left leg with dressing present on the left lower extremity. NEUROLOGIC: Nonfocal exam. LABORATORY DATA: Sodium 138, potassium 4.1, chloride 107, CO2 of 24, BUN 13, creatinine 0.77, WBC 5.36, hemoglobin 13, hematocrit 37.6, platelets 130. Telemetry was personally reviewed and interpreted revealing normal sinus with PACs as well as episodes of atrial fibrillation with RVR. IMPRESSION: 1. Paroxysmal atrial fibrillation with RVR, currently sinus rhythm. 2. Rhabdomyolysis. 3. Left leg wound. 4. Hypertension. 5. Hyperlipidemia. 6. Diabetes mellitus. RECOMMENDATIONS: Start the patient on scheduled metoprolol for heart rate control. He has known history of atrial fibrillation and is on Eliquis for CVA prophylaxis as an outpatient. Resume Eliquis. Monitor the patient closely on telemetry while admitted. Agree with fluids for rhabdomyolysis. The patient had an echocardiogram performed in June of last year with preserved LVEF, but impaired relaxation. Monitor volume status closely with fluids. No further cardiac evaluation is indicated at this time. Thank you for this consult. We will continue to follow. Shantelle Landin MD ABS/MODL /[id number]
[2020-05-26] MEDS: METOPROLOL TARTRATE 25 MG TAB PO SCH ×2 (17:14→22:21)
--- NOTE | 2020-05-26 19:20 | NUR ---
Patient received sitting up in bed. AAO x 4. No acute distress noted. IVF infusing at 125 cc. Fall precautions implemented. Call light within reach.
[2020-05-26] MEDS: ATORVASTATIN 10 MG TAB PO SCH (22:20)
[2020-05-26] MEDS: FINASTERIDE 5 MG TAB PO SCH (22:20)
[2020-05-27] VITALS (8 sets, daily range): BP systolic 112–147; BP diastolic 66–86
[2020-05-27] MEDS: PIPER-TAZ 3.375 GM 50 ML IV SCH ×4 (00:41→17:18)
[2020-05-27] MEDS: SODIUM CHLORIDE 0.9% 1000ML 1,000 ML IV SCH ×2 (00:41→13:50)
[2020-05-27] MEDS: METOPROLOL TARTRATE 25 MG TAB PO SCH (06:41)
--- NOTE | 2020-05-27 06:50 | NUR ---
RECEIVED BEDSIDE SHIFT REPORT FROM OFF GOING NURSE. PATIENT IS RESTING IN BED. NO ACUTE DISTRESS NOTED. CALL LIGHT WITHIN REACH. BED IN THE LOWEST POSITION.
[2020-05-27] MEDS: INSULIN REGULAR, HUMAN 100 UNIT/1 ML 3ML VIAL SQ SCH ×4 (08:10→23:38)
[2020-05-27] MEDS: ASPIRIN 81 MG ENTERIC COATED PO SCH (08:11)
[2020-05-27] MEDS: TAMSULOSIN HCL 0.4 MG CAP PO SCH (08:11)
[2020-05-27] MEDS: DIGOXIN 0.125 MG TAB PO SCH (08:11)
[2020-05-27] MEDS: LISINOPRIL 20 MG TAB PO SCH (08:12)
[2020-05-27] MEDS: BACITRACIN ZINC 15 GM OINT TOP SCH (10:39)
[2020-05-27] MEDS ORDERED: METOPROLOL TARTRATE 25 MG TAB PO SCH (11:00)
--- NOTE | 2020-05-27 12:57 | NUR ---
IM- progress note O/N see below ROS: no f/c/s/N/V/D/BRONSON/cp/sob/confusion/vision changes/ v/s; revd PE tired appearing anicteric ns1s2 mod bs soft nt nd no e/t left foreleg with bruise/DTI ; some bruising on B/L thighs a&ox3; mackay skin dry flat affect labs/meds revd A/P: 75yoM Leg wound- due to injury on job; LWC; IV abx; consult operations and maintenance specialist Acute rhabdomyolysis- IVF GILBERT- IVF PAF- hold AC; use BB/dig; A.fib with RVR- IV BB; IV Dig; start PO tomorrow DM2- hba1c/lipids; ADA diet HTn- cont home meds BPH- cont flomax HLD_ cont statin Prop: ambulate with PT Dispo; start PT; wound care; AV blockade 05-27 check CPK; cont care; Omar Lorenzo MD, PHD
--- NOTE | 2020-05-27 13:10 | Progress Note ---
DATE: 05/27/2020 Cardiology Progress Note SUBJECTIVE: The patient denies chest pain or shortness of breath. He is asking if he can go home. OBJECTIVE: VITAL SIGNS: Temperature 97.6 degrees, pulse 82, respiratory rate 20, blood pressure 147/81, and oxygen saturation 100% on room air. GENERAL: Awake, alert, in no acute distress. LUNGS: Clear to auscultation bilaterally. No wheezes or crackles. CARDIOVASCULAR: Normal rate, regular rhythm. No murmur. Normal S1, S2. ABDOMEN: Soft, nontender. EXTREMITIES: Dressing present on the left leg. CARDIAC MEDICATIONS: Metoprolol tartrate 25 mg p.o. q.8 hours, lisinopril 20 mg p.o. daily, digoxin 0.125 mg p.o. daily, aspirin 81 mg p.o. daily, atorvastatin 10 mg p.o. at bedtime. LABORATORY DATA: Labs none today. TELEMETRY: Personal reviewed and revealed normal sinus rhythm. Episodes of atrial fibrillation with rapid ventricular response. IMPRESSION: 1. Paroxysmal atrial fibrillation with rapid ventricular response, currently sinus rhythm. 2. Rhabdomyolysis. 3. Left leg wound. 4. Hypertension. 5. Hyperlipidemia. 6. Diabetes mellitus. RECOMMENDATIONS: Increase metoprolol to 50 mg q.12 hours for rate control. Resume Eliquis for CVA prophylaxis. Monitor the patient on telemetry while admitted. The patient had echocardiogram performed in June of last year with preserved LVEF, but impaired relaxation. Monitor volume status closely while giving IV fluids for rhabdomyolysis. No further cardiac evaluation is indicated at this time. Thank you for this consult. We will continue to follow. Shantelle Landin MD ABS/MODL /[id number]
[2020-05-27] MEDS ORDERED: ONDANSETRON HCL 4 MG ORAL DISINTEGRATING TAB PO PRN (15:15)
--- NOTE | 2020-05-27 19:08 | NUR ---
BEDSIDE SHIFT REPORT GIVEN TO ONCOMING NURSE. PATIENT IS IN STABLE CONDITION, RESTING IN BED. CALL LIGHT WITHIN REACH. BED IN THE LOWEST POSITION.
[2020-05-27] MEDS: METOPROLOL TARTRATE 50 MG TAB PO SCH (21:56)
[2020-05-27] MEDS: ATORVASTATIN 10 MG TAB PO SCH (21:56)
[2020-05-27] MEDS: FINASTERIDE 5 MG TAB PO SCH (21:57)
[2020-05-28 01:02] VITALS: BP 135/73
[2020-05-28] MEDS: SODIUM CHLORIDE 0.9% 1000ML 1,000 ML IV SCH (02:29)
[2020-05-28 05:06] VITALS: BP 144/78
[2020-05-28 05:15] LABS: BASOPHILS % 0.6 % (0.0-1.0); EOSINOPHILS # (AUTO) 0.3 (0.0-0.4); EOSINOPHILS % 5.5 % (0.0-6.0); HEMATOCRIT 35.9 % (38.2-49.6); HEMOGLOBIN 12.4 g/dL (14.0-18.0); LYMPHOCYTES # (AUTO) 0.9 (1.0-3.2); LYMPHOCYTES % 18.5 % (18.0-39.1); MEAN CORPUSCULAR HEMOGLOBIN 33.3 pg (28-32); MEAN CORPUSCULAR HGB CONC 34.5 g/dL (31-35); MEAN CORPUSCULAR VOLUME 96.5 fL (81-99); MONOCYTES # (AUTO) 0.4 (0.2-0.8); MONOCYTES % 7.4 % (4.4-11.3); NEUTROPHILS # (AUTO) 3.2 (2.1-6.9); NEUTROPHILS % 67.6 % (38.7-80.0); PLATELET COUNT 148 x10e3/uL (140-360); RED BLOOD COUNT 3.72 x10e6/uL (4.3-5.7); RED CELL DISTRIBUTION WIDTH 12.7 % (11.7-14.4)
[2020-05-28] MEDS ORDERED: DIGOXIN125 MCG PO (05:24)
[2020-05-28] MEDS ORDERED: METOPROLOL TART50 MG PO (05:24)
[2020-05-28] MEDS ORDERED: CEFUROXIME250 MG PO (05:24)
--- NOTE | 2020-05-28 05:29 | NUR ---
D/C summary Principal Dx: Leg wound- due to injury on job; LWC; IV abx; consult fiscal specialist Acute rhabdomyolysis- IVF GILBERT- IVF Secondary Dx: PAF- hold AC; use BB/dig; A.fib with RVR- IV BB; IV Dig; start PO tomorrow DM2- hba1c/lipids; ADA diet HTn- cont home meds BPH- cont flomax HLD_ cont statin Prop: ambulate with PT Dispo; start PT; wound care; AV blockade 05-27 check CPK; cont care; d/c home on ceftin f/u pcp 2 days stable d/c>35mins Omar Lorenzo MD, PHD
[2020-05-28 05:51] LABS: BLOOD UREA NITROGEN 11 mg/dL (7-26); BUN/CREATININE RATIO 15 (6-25); CALCIUM 8.4 mg/dL (8.4-10.2); CARBON DIOXIDE 26 mmol/L (22-29); CHLORIDE 107 mmol/L (98-107); CREATININE, SERUM 0.72 mg/dL (0.72-1.25); EST GLOMERULAR FILTRATION RATE > 60 ML/MIN (60-); GLUCOSE 95 mg/dL (74-118); MAGNESIUM 1.8 MG/DL (1.3-2.1); SODIUM 139 mmol/L (136-145)
--- NOTE | 2020-05-28 06:36 | NUR ---
Dr. Lorenzo here to see patient. requested Dr. Miles paged regarding special wound treatment orders for patient and also to request Home Health from [facility].
--- NOTE | 2020-05-28 06:42 | NUR ---
Dr. Miles paged regarding wound treatment orders. stated the wound treatment order is the same as what patient is already receiving at the hospital.
--- NOTE | 2020-05-28 07:00 | NUR ---
Walking rounds done. Bed-side report given to oncoming nurse regarding patient's status.
[2020-05-28] MEDS: PIPER-TAZ 3.375 GM 50 ML IV SCH ×2 (07:29)
[2020-05-28] MEDS: INSULIN REGULAR, HUMAN 100 UNIT/1 ML 3ML VIAL SQ SCH (07:30)
[2020-05-28 08:06] VITALS: BP 144/78
[2020-05-28 08:10] VITALS: BP 148/74
[2020-05-28] MEDS: ASPIRIN 81 MG ENTERIC COATED PO SCH (10:00)
[2020-05-28] MEDS: DIGOXIN 0.125 MG TAB PO SCH (10:00)
[2020-05-28] MEDS: LISINOPRIL 20 MG TAB PO SCH (10:00)
[2020-05-28] MEDS: TAMSULOSIN HCL 0.4 MG CAP PO SCH (10:00)
[2020-05-28] MEDS: METOPROLOL TARTRATE 50 MG TAB PO SCH (10:00)
--- NOTE | 2020-05-28 10:30 | NUR ---
Discharge instructions and prescription were given to the patient. He verbalized understanding. Wound care teaching was done and patient verbalized understanding. Patient's daughter was also notified of patient's wound care and f/u instructions.
--- NOTE | 2020-05-28 10:55 | NUR ---
IV removed from left AC with tip intact.
--- NOTE | 2020-05-28 11:11 | NUR ---
Patient left the floor for dc home. Refused wheelchair assistance.
--- NOTE | 2020-05-28 11:30 | NUR ---
ORDERS FOR HOME HEALTH VERIFIED ADDRESS AND PHONE NUMBER WITH PT AND DTR CHOICE LETTER SIGNED FOR [facility] PH: [phone] FAX: [phone] COPY OF CHOICE LETTER TO PT IMM IN [place] EXPLAINED TO PT, SIGNED BY PT AND PLACED IN CHART COPY OF IMM TO PT IN [facility] [employer] WITH ORDER FAXED TO [facility]; CONFIRMATION REC'D ASKED FOR [place] SPEAKING NURSE
--- OUTSIDE RECORDS SUMMARY | 2020-06-10 11:42 | XMS REPORT | Continuity of Care Document ---
Author Author [facility] t Organization [facility] Address [address] [place] [address] Phone Unavailable Care Team Providers Care Hardware Engineer Name Role Phone BELÉN MUNOZ PCP Brown CURIEL YICHING Attphys Unavailable SANDHIRaquel Landry AMBICA Attphys Unavailable Brown CURIEL YICHING Admphys Unavailable Problems Condition Name Condition Details Condition Category Status Onset Date Resolution Date Last Treatment Date Treating Clinician Comments Source Gastritis Problem Active [facility] Rhabdomyolysis Problem Active [facility] Open wound of lower extremity Problem Active [facility] Back pain Problem Active [facility] Allergies, Adverse Reactions, Alerts This patient has no known allergies or adverse reactions. Social History Social Habit Start Date Stop Date Quantity Comments Source Sex Ass[birth year] At 1945 00:00:00 1945 00:[birth year]:00 Male [facility] Medications Ordered Medication Name Filled Medication Name Start Date Stop Da te Current Medication? Ordering Clinician Indication Dosage Frequency Signature (SIG) Comments Components Source Cefuroxime Axetil (Cefuroxime) 250 Mg TABLET Cefuroxim e Axetil (Cefuroxime) 250 Mg TABLET 2020-05-28 05:24:00 Yes 500 Every 12 Hours [facility] Digoxin Digoxin 2020-05-28 05:24:00 Yes .125 Every Mor regla [facility] Metoprolol Tartrate Metoprolol Tartrate 2020-05-28 05:24:00 Yes 50 Every 12 Hours [facility] Apixaban (Eliquis) 5 Mg TAB.DS.PK Apixaban (Eliquis) 5 Mg TAB.DS.PK Yes 5 Twice A Day [facility] Atorvastatin Calcium Atorvastatin Calcium Yes 10 Today At 9:00PM [facility] Finasteride Finasteride Yes 5 Bedtime [facility] Glipizide Glipizide Yes 10 Daily [facility] Lisinopril Lisinopril Yes 20 Daily [facility] Metformin Hcl Metformin Hcl Yes 500 Twice A Day [facility] Tamsulosin Hcl (Flomax*) 0.4 Mg CAP Tamsulosin Hcl (Flomax*) 0.4 Mg C AP Yes .4 Daily [facility] Vital Signs Vital Name Observation Time Observation Value Comments Source Body Temperature 2020-05-28 08:10:00 97.6 [degF] [facility] BMI (Body Mass Index) 2020-05-25 07:30:00 27.7 kg/m2 [facility] Weight 2020-05-24 21:59:00 182 [lb_av] [facility] Body Temperature 2020-05-08 23:01:00 97.7 [degF] [facility] Weight 2020-05-08 19:47:00 182 [lb_av] [facility] BMI (Body Mass Index) 2020-05-08 19:47:00 25.4 kg/m2 [facility] Procedures Procedure Date / Time Performed Performing Clinician [facility] e X-ray of chest, two views 2020-05-08 00:00:00 [facility] Plan of Care Planned Activity Planned Date Details Comments Source Instructions Puncture Wound [facility] Encounters Start Date/Time End Date/Time Encounter Type Admission Type [facility] Facility Care Department Encounter ID Source 2020-05-27 13:01:00 2020-05-25 01:11:00 Admitted Inpatient 1 YOHANA CURIEL [facility] [id number] [facility] 2020-05-08 19:30:00 2020-05-08 23:16:00 Departed Emergency Room 1 SARA YEAGER [facility] [id number] I [facility] Results Test Description Test Time Test Comments Results Result Comments Source Capillary blood glucose measurement by glucometer (mas s/volume) 2020-05-28 07:41:00 Test Item Bedside Glucose (test code = 54418-1) 105 70-120 Meter ID: [id number] [facility] HospitalBlood leukocytes automated count (number/volume)2020-05-28 05:00:00* Test Item Value Reference Range Interpretation Comments White Blood Count (test code = 6690-2) 4.71 4.8-10.8 [facility] automated count (number/volume)2020-05-28 05:00:00* Test Item Value Reference Range Interpretation Comments Red Blood Count (test code = 789-8) 3.72 4.3-5.7 [facility] hemoglobin measurement (moles/volume)2020-05-28 05:00:00* Test Item Value Reference Range Interpretation Comments Hemoglobin (test code = 95133-0) 12.4 14.0-18.0 [facility] blood hematocrit (volume fraction)2020-05-28 05:00:00* Test Item Value Reference Range Interpretation Comments Hematocrit (test code = 4544-3) 35.9 38.2-49.6 [facility] HospitalAutomated erythrocyte mean corpuscular vcfesi2887-28-54 05:00:00* Test Item Value Reference Range Interpretation Comments Mean Corpuscular Volume (test code = 787-2) 96.5 81-99 [facility]Autom[facility] erythrocyte mean corpuscular hemoglobin (mass per erythrocyte)2020-05-28 05:00:00* Test Item Value Reference Range Interpretation Comments Mean Corpuscular Hemoglobin (test code = 785-6) 33.3 28-32 [facility] HospitalAutom[facility] erythrocyte mean corpuscular hemoglobin concentration measurement (mass/volume)2020-05-28 05:00:00* Test Item Value Reference Range Interpretation Comments Mean Corpuscular Hemoglobin Concent (test code = 786-4) 34.5 31-35 [facility] HospitalRDW IhwEq-Opw5034-42-18 05:00:00* Test Item Value Reference Range Interpretation Comments Red Cell Distribution Width (test code = 80417-5) 12.7 11.7 -14.4 [facility] HospitalAutom[facility] blood platelet count (count/volume)2020-05-28 05:00:00* Test Item Value Reference Range Interpretation Comments Platelet Count (test code = 777-3) 148 140-360 [facility] HospitalAutom[facility] blood segmented neutrophil count as percentage of total uwhvslckts1179-10-50 05:00:00* Test Item Value Reference Range Interpretation Comments Neutrophils (%) (Auto) (test code = 81304-2) 67.6 38.7-80.0 [facility] HospitalAutom[facility] blood lymphocyte count as percentage ot total ssbjyzecue9443-28-15 05:00:00* Test Item Value Reference Range Interpretation Comments Lymphocytes (%) (Auto) (test code = 736-9) 18.5 18.0-39.1 [facility] HospitalAutom[facility] blood monocyte count as percentage of total fljfbfxurl1308-03-97 05:00:00* Test Item Value Reference Range Interpretation Comments Monocytes (%) (Auto) (test code = 5905-5) 7.4 4.4-11.3 [facility]Autom[facility] blood eosinophil count as percentage of total vibmdjrpre0498-44-92 05:00:00* Test Item Value Reference Range Interpretation Comments Eosinophils (%) (Auto) (test code = 713-8) 5.5 0.0-6.0 [facility]Autom[facility] blood basophil count as percentage of total xzrzjgigan1070-09-20 05:00:00* Test Item Value Reference Range Interpretation Comments Basophils (%) (Auto) (test code = 706-2) 0.6 0.0-1.0 [facility] HospitalFluoroscopic procedure less than one hour vpevyzuo3001-82-36 05:00:00* Test Item Value Reference Range Interpretation Comments IM GRANULOCYTES % (test code = IM GRANULOCYTES %) 0.4 0.0- 1.0 [facility] blood neutrophil count 2020-05-28 05:00:00* Test Item Value Reference Range Interpretation Comments Neutrophils # (Auto) (test code = 751-8) 3.2 2.1-6.9 [facility] lymphocytes count (number/volume) 2020-05-28 05:00:00* Test Item Value Reference Range Interpretation Comments Lymphocytes # (Auto) (test code = 08355-1) 0.9 1.0-3.2 [facility] monocytes automated count (number/volume)2020-05-28 05:00:00* Test Item Value Reference Range Interpretation Comments Monocytes # (Auto) (test code = 742-7) 0.4 0.2-0.8 [facility] HospitalAutom[facility] blood eosinophil count 2020-05-28 05:00:00* Test Item Value Reference Range Interpretation Comments Eosinophils # (Auto) (test code = 711-2) 0.3 0.0-0.4 [facility] HospitalAutomated blood basophil count (count/volume)2020-05-28 05:00:00* Test Item Value Reference Range Interpretation Comments Basophils # (Auto) (test code = 704-7) 0.0 0.0-0.1 [facility] HospitalFluoroscopic procedure less than one hour uuijrirf9455-19-11 05:00:00* Test Item Value Reference Range Interpretation Comments Absolute Immature Granulocyte (auto (simón t code = Absolute Immature Granulocyte (auto) 0.02 0-0.1 [facility] sodium measurement (moles/volume)2020-05-28 05:00:00* Test Item Value Reference Range Interpretation Comments Sodium Level (test code = 2951-2) 139 136-145 [facility]er[facility] plasma potassium measurement (moles/volume)2020-05-28 05:00:00* Test Item Value Reference Range Interpretation Comments Potassium Level (test code = 2823-3) 4.0 3.5-5.1 [facility] plasma chloride measurement (moles/volume)2020-05-28 05:00:00* Test Item Value Reference Range Interpretation Comments Chloride Level (test code = 2075-0) 107 98-107 [facility]erum or plasma carbon dioxide, total measurement (moles/volume)2020-05-28 05:00:00* Test Item Value Reference Range Interpretation Comments Carbon Dioxide Level (test code = 2028-9) 26 22-29 [facility]er[facility] or plasma anion qgb3183-83-23 05:00:00* Test Item Value Reference Range Interpretation Comments Anion Gap (test code = 41569-0) 10.0 8-16 [facility] plasma urea nitrogen measurement (mass/volume)2020-05-28 05:00:00* Test Item Value Reference Range Interpretation Comments Blood Urea Nitrogen (test code = 3094-0) 11 7-26 [facility]er[facility] plasma creatinine measurement (mass/volume)2020-05-28 05:00:00* Test Item Value Reference Range Interpretation Comments Creatinine (test code = 2160-0) 0.72 0.72-1.25 [facility] plasma urea nitrogen/creatinine mass zohiv0408-36-33 05:00:00* Test Item Value Reference Range Interpretation Comments BUN/Creatinine Ratio (test code = 3097-3) 15 6-25 [facility] HospitalEstimated glomerular filtration rate (GFR) zpnhfqtslltee1733-34-06 05:00:00* Test Item Value Reference Range Interpretation Comments Estimat Glomerular Filtration Rate (test code = 833521876) > 60 >60 Ranges were taken from the National Kidney Disease Education Program and the [facility] Kidney Foundation literature.Reference ranges:60 or greater: Ltwbnb38-79 ( for 3 consecutive months): Chronic kidney disease 15 or less: Kidney failureCHRISTUS Saint Michael HospitalGlucose qqjnxykhzlx1443-77-33 05:00:00* Test Item Value Reference Range Interpretation Comments Glucose Level (test code = RFP9062) 95 74-118 [facility] plasma calcium measurement (mass/volume)2020-05-28 05:00:00* Test Item Value Reference Range Interpretation Comments Calcium Level (test code = 21862-6) 8.4 8.4-10.2 [facility]er[facility] plasma magnesium measurement (mass/volume)2020-05-28 05:00:00* Test Item Value Reference Range Interpretation Comments Magnesium Level (test code = 67043-6) 1.8 1.3-2.1 [facility] Hospitaler[facility] or plasma creatine kinase measurement (enzymatic activity/volume)2020-05-28 05:00:00* Test Item Value Reference Range Interpretation Comments Creatine Kinase (test code = 2157-6) 392 30-200 [facility] HospitalFluoroscopic procedure less than one hour ghdodsnd7534-43-40 05:20:00* Test Item Value Reference Range Interpretation Comments Hemoglobin A1c Percent (test code = Hemoglobin A1c Percent) 6.3 4.0-7.0 [facility]er[facility] or plasma triglyceride measurement (mass/volume)2020-05-26 05:20:00* Test Item Value Reference Range Interpretation Comments Triglycerides Level (test code = 2571-8) 72 0-149 [facility]erum or plasma cholesterol measurement (mass/volume)2020-05-26 05:20:00* Test Item Value Reference Range Interpretation Comments Cholesterol Level (test code = 2093-3) 98 0-199 Less than 200 mg/dL Low Xyct352 - 239 mg/dL Borderline Xyuf747 m g/dl and greater High Risk [facility]er[facility] plasma cholesterol in LDL measurement (mass/volume) 2020-05-26 05:20:00* Test Item Value Reference Range Interpretation Comments LDL Cholesterol (test code = 2089-1) 42 60-130 [facility]erum [facility] plasma cholesterol in HDL measurement (mass/volume)2020-05-26 05:20:00* Test Item Value Reference Range Interpretation Comments HDL Cholesterol (test code = 2085-9) 42 40-60 [facility]er[facility] or plasma total cholesterol/cholesterol in HDL mass ycpxp1860-93-79 05:20:00* Test Item Value Reference Range Interpretation Comments Cholesterol/HDL Ratio (test code = 9830-1) 2.3 3.9-4.7 [facility]er[facility] or plasma thyrotropin measurement by detection limit <= 0.005 miu/l (units/volume)2020-05-26 05:20:00* Test Item Value Reference Range Interpretation Comments Thyroid Stimulating Hormone (TSH) (test code = 87144-2) 4.132 0.350-4.940 [facility] Hospitalerum or plasma creatine kinase MB measurement (mass/volume)2020-05-25 17:06:00* Test Item Value Reference Range Interpretation Comments Creatine Kinase MB (test code = 36532-0) 3.80 0-5.0 [facility] HospitalTroponin I measurement by highly sensitive enzyme uzlskqekmtq5602-40-94 17:06:00* Test Item Value Reference Range Interpretation Comments Troponin I (test code = 38769-4) 0.005 0-0.300 [facility]er[facility] plasma total bilirubin measurement (mass/volume)2020-05-25 07:55:00* Test Item Value Reference Range Interpretation Comments Total Bilirubin (test code = 1975-2) 1.2 0.2-1.2 [facility] HospitalFluoroscopic procedure less than one hour jyopbsyv0971-00-59 07:55:00* Test Item Value Reference Range Interpretation Comments Aspartate Amino Transf (AST/SGOT) (test code = Aspartate Amino Transf (AST/SGOT)) 49 5-34 [facility] Hospitalerum or plasma alanine aminotransferase measurement (enzymatic activity/volume)2020-05-25 07:55:00* Test Item Value Reference Range Interpretation Comments Alanine Aminotransferase (ALT/SGPT) (test code = 1742-6) 42 0-55 [facility] Hospitaler[facility] or plasma protein measurement (mass/volume)2020-05-25 07:55:00* Test Item Value Reference Range Interpretation Comments Total Protein (test code = 2885-2) 7.2 6.5-8.1 [facility] plasma albumin measurement (mass/volume)2020-05-25 07:55:00* Test Item Value Reference Range Interpretation Comments Albumin (test code = 1751-7) 3.9 3.5-5.0 [facility] HospitalPlasma globulin measurement (mass/volume) 2020-05-25 07:55:00* Test Item Value Reference Range Interpretation Comments Globulin (test code = 04693-7) 3.3 2.3-3.5 [facility]er[facility] or plasma albumin/globulin mass agbea9652-65-80 07:55:00* Test Item Value Reference Range Interpretation Comments Albumin/Globulin Ratio (test code = 1759-0) 1.2 0.8-2.0 [facility]er[facility] or plasma alkaline phosphatase measurement (enzymatic activity/volume)2020-05-25 07:55:00* Test Item Value Reference Range Interpretation Comments Alkaline Phosphatase (test code = 6768-6) 56 40-150 [facility] HospitalFEMUR TWO VIEW MINIMUM UNMTP9668-23-74 04:18:00 [facility] [address] [address] Patient Name: ALICIA SCHNEIDER MR #: [id number] : 1945 Age/Sex: 75/M Req #: [id number] Adm Physician: YOHANA CURIEL MD Ordered by: JEANNIE TOMAS DO Report #: [id number] Location: [facility] Room/Bed: [address] [address] Procedure: [id number] DX/FEMUR TWO VIEW MINIMUM RIGHT Exam Date: Exam Time: REPORT STATUS: Signed Exam: Right fem ur, 4 views History: Hip pain, pipe fell on leg Comparison: None. Findings: There is normal bone mineralization. No acute, displaced fracture or dislocation. Joint spaces preserved. No abnormal soft tissue calcification or soft tissue defect. No soft tissue swelling. Impression: 1. No a cute abnormalities. Signed by: Dr. Mary Barboza M.D. on 05/25/2020 4:52 AM Dictated By: MARY BARBOZA MD Transcribed By: MIGUELINA on 05/25/20 0452 COPY TO: JEANNIE TOMAS DO LUMBAR 3 [id number] 23:26:00 [address] [address] Patient Name: ALICIA SCHNEIDER MR #: [id number] : 1945 Age/Sex: 75/M Req #: [id number] Adm Physician: Ordered by: JEANNIE TOMAS DO Report #: [id number] Location: ER Room/Bed: Procedure: [id number] DX/LUMBAR 3 V IEW Exam Date: 05/24/20 Exam Time: 2250 REPORT STATUS: Signed EXAMINATION: Lumbar sp ine series. CLINICAL HISTORY: Trauma to lower back and leg COMPARISON: None. DISCUSSION: 3 views of the lumbar spine are submitted for interp retation. Five nonrib-bearing lumbar type vertebral bodies are identified. No acute, displaced fractures or subluxation. No spondylolisthesis. Multile henrietta degenerated discs in the lower thoracic and lumbosacral spine, worse at T11-T12, L1-L2, L4-L5 and L5-S1, with moderate osteophytosis. No aggressive ly tic or suspicious sclerotic lesions. Vertebral body heights are preserved. Sac roiliac joints are unremarkable. Nonobstructive bowel gas pattern. IMPRE SSION: 1. No acute abnormalities. 2. Moderate degenerative changes in the lower thoracic and lumbosacral spine. The staff physician below has personally reviewed this exam on the date of dictation. Sign ed by: Dr. Mary Barboza M.D. on 05/24/2020 11:27 PM Dictated By: KAVITHA BARBOZA MD 26 Tr anscribed By: MIGUELINA on 05/24/202326 COPY TO: JEANNIE TOMAS DO LOWER LEG [id number] 23:24:00 [address] [place] [address] Patient Name: ALICIA SCHNEIDER MR #: [id number] : 1945 Age/Sex: 75/M Req #: [id number] Adm Physician: Ordered by: JEANNIE TOMAS DO Report #: [id number] Location: ER Room/Bed: Procedure: [id number] DX/LOWER LEG LEFT Exam Date: 05/24/20 Exam Time: 2250 REPORT STATUS: Signed Exam: Left lower leg, 4 views History: Trauma to the lower leg and back today Comparis on: None. Findings: There is normal bone mineralization. No acute, displa antoine fracture or dislocation. Ankle mortise and knee joints are relatively well -preserved. Mild patellar osteophytosis. Extensive vascular calcifications. No soft tissue swelling or soft tissue defect. Impression: 1. No acute abnormalities. Signed by: Dr. Mary Barboza M.D. on 05/24/2020 11:2 5 PM Dictated By: MARY BARBOZA MD 24 Transcribed By: MIGUELINA on 05/24/202324 COPY TO : JEANNIE TOMAS DO CHEST 2 [id number] 20:17:00 [address] [place] [address] Patient Name: ALICIA SCHNEIDER MR #: [id number] : 1945 Age/Sex: 75/M Req #: [id number] Adm Physician: Ordered by: SARA YEAGER DO Report #: [id number] Location: ER R oom/Bed: Procedure: [id number] DX/CHEST 2 VIEWS Exam Date: 05/08/20 Exam Time: 1999 REPORT STATUS: Signed EXAMINATION: PA and lateral views of the chest. COMPARISON: None CLINICAL HISTORY: V omiting after eating shrimp DISCUSSION: Lines/tubes: None. Lungs: Lungs are well-inflated. Biapical pleuroparenchymal scarring. Linear o pacities and increased lucency in the upper lobes likely reflect COPD changes and scarring. No consolidation or pulmonary edema. Pleura: There is no ple ural effusion or pneumothorax. Heart and mediastinum: Cardiomediastinal si lhouette is unremarkable. Pulmonary vasculature is normal. Bones and s oft tissues: No acute bony abnormalities. Degenerative changes in the thorac ic spine IMPRESSION: COPD changes, without acute cardiopulmonary abnorma lities. Signed by: Dr. Mary Barboza M.D. on 05/08/2020 8:1 8 PM Dictated By: MARY BARBOZA MD 17 Transcribed By: MIGUELINA on 05/08/202017 COPY TO : SARA YEAGER DO Blood leukocytes automated count (number/volume) 2020-05-08 20:00:00* Test Item Value Reference Range Interpretation Comments White Blood Count (test code = 6690-2) 8.66 4.8-10.8 [facility] erythrocytes automated count (number/volume)2020-05-08 20:00:00* Test Item Value Reference Range Interpretation Comments Red Blood Count (test code = 789-8) 4.43 4.3-5.7 [facility]Blood hemoglobin measurement (moles/volume)2020-05-08 20:00:00* Test Item Value Reference Range Interpretation Comments Hemoglobin (test code = 59608-4) 14.8 14.0-18.0 [facility] HospitalAutomated blood hematocrit (volume fraction)2020-05-08 20:00:00* Test Item Value Reference Range Interpretation Comments Hematocrit (test code = 4544-3) 42.9 38.2-49.6 [facility] HospitalAutomated erythrocyte mean corpuscular ezuhyd1343-61-24 20:00:00* Test Item Value Reference Range Interpretation Comments Mean Corpuscular Volume (test code = 787-2) 96.8 81-99 [facility] HospitalAutomated erythrocyte mean corpuscular hemoglobin (mass per erythrocyte)2020-05-08 20:00:00* Test Item Value Reference Range Interpretation Comments Mean Corpuscular Hemoglobin (test code = 785-6) 33.4 28-32 [facility] HospitalAutomated erythrocyte mean corpuscular hemoglobin concentration measurement (mass/volume)2020-05-08 20:00:00* Test Item Value Reference Range Interpretation Comments Mean Corpuscular Hemoglobin Concent (test code = 786-4) 34.5 31-35 [facility] HospitalRDW CrkDu-Bqh5611-65-28 20:00:00* Test Item Value Reference Range Interpretation Comments Red Cell Distribution Width (test code = 73165-1) 12.9 11.7 -14.4 [facility] HospitalAutomated blood platelet count (count/volume)2020-05-08 20:00:00* Test Item Value Reference Range Interpretation Comments Platelet Count (test code = 777-3) 134 140-360 [facility] HospitalAutomated blood segmented neutrophil count as percentage of total wphknaeofz1996-29-49 20:00:00* Test Item Value Reference Range Interpretation Comments Neutrophils (%) (Auto) (test code = 20831-6) 83.6 38.7-80.0 [facility] HospitalAutomated blood lymphocyte count as percentage ot total oqjwffqdod2585-36-91 20:00:00* Test Item Value Reference Range Interpretation Comments Lymphocytes (%) (Auto) (test code = 736-9) 8.4 18.0-39.1 [facility] HospitalAutomated blood monocyte count as percentage of total icgfjseuwr9343-91-52 20:00:00* Test Item Value Reference Range Interpretation Comments Monocytes (%) (Auto) (test code = 5905-5) 4.6 4.4-11.3 [facility] HospitalAutomated blood eosinophil count as percentage of total dusrekysep1579-35-25 20:00:00* Test Item Value Reference Range Interpretation Comments Eosinophils (%) (Auto) (test code = 713-8) 2.8 0.0-6.0 [facility] as percentage of total ysvxrxatbp9529-99-91 20:00:00* Test Item Value Reference Range Interpretation Comments Basophils (%) (Auto) (test code = 706-2) 0.3 0.0-1.0 [facility] HospitalFluoroscopic procedure less than one hour vmntmuco6816-28-90 20:00:00* Test Item Value Reference Range Interpretation Comments IM GRANULOCYTES % (test code = IM GRANULOCYTES %) 0.3 0.0- 1.0 [facility] HospitalAutomated blood neutrophil count 2020-05-08 20:00:00* Test Item Value Reference Range Interpretation Comments Neutrophils # (Auto) (test code = 751-8) 7.2 2.1-6.9 [facility]Blood lymphocytes count (number/volume) 2020-05-08 20:00:00* Test Item Value Reference Range Interpretation Comments Lymphocytes # (Auto) (test code = 15329-3) 0.7 1.0-3.2 [facility]Blood monocytes automated count (number/volume)2020-05-08 20:00:00* Test Item Value Reference Range Interpretation Comments Monocytes # (Auto) (test code = 742-7) 0.4 0.2-0.8 [facility] HospitalAutomated blood eosinophil count 2020-05-08 20:00:00* Test Item Value Reference Range Interpretation Comments Eosinophils # (Auto) (test code = 711-2) 0.2 0.0-0.4 [facility] HospitalAutomated blood basophil count (count/volume)2020-05-08 20:00:00* Test Item Value Reference Range Interpretation Comments Basophils # (Auto) (test code = 704-7) 0.0 0.0-0.1 [facility] less than one hour [id number] 20:00:00* Test Item Value Reference Range Interpretation Comments Absolute Immature Granulocyte (auto (simón t code = Absolute Immature Granulocyte (auto) 0.03 0-0.1 [facility] sodium [facility] (moles/volume)2020-05-08 20:00:00* Test Item Value Reference Range Interpretation Comments Sodium Level (test code = 2951-2) 139 136-145 [facility] potassium measurement (moles/volume)2020-05-08 20:00:00* Test Item Value Reference Range Interpretation Comments Potassium Level (test code = 2823-3) 4.1 3.5-5.1 [facility] chloride measurement (moles/volume)2020-05-08 20:00:00* Test Item Value Reference Range Interpretation Comments Chloride Level (test code = 2075-0) 103 98-107 [facility] carbon dioxide, total measurement (moles/volume)2020-05-08 20:00:00* Test Item Value Reference Range Interpretation Comments Carbon Dioxide Level (test code = 2028-9) 25 22-29 [facility] anion [id number] 20:00:00* Test Item Value Reference Range Interpretation Comments Anion Gap (test code = 46041-3) 15.1 8-16 [facility] urea nitrogen measurement (mass/volume)2020-05-08 20:00:00* Test Item Value Reference Range Interpretation Comments Blood Urea Nitrogen (test code = 3094-0) 12 7-26 [facility] creatinine measurement (mass/volume)2020-05-08 20:00:00* Test Item Value Reference Range Interpretation Comments Creatinine (test code = 2160-0) 0.83 0.72-1.25 [facility] urea nitrogen/creatinine mass [id number] 20:00:00* Test Item Value Reference Range Interpretation Comments BUN/Creatinine Ratio (test code = 3097-3) 14 6-25 [facility] HospitalEstimated glomerular filtration rate (GFR) [id number] 20:00:00* Test Item Value Reference Range Interpretation Comments Estimat Glomerular Filtration Rate (test code = 071612179) > 60 >60 Ranges were taken from the National Kidney Disease Education Program and the [facility] Foundation literature.Reference ranges:60 or greater: [id number] ( for 3 consecutive months): Chronic kidney disease 15 or less: Kidney failureCH[facility] HospitalGlucose [id number] 20:00:00* Test Item Value Reference Range Interpretation Comments Glucose Level (test code = KQA6417) 153 74-118 [facility] calcium measurement (mass/volume)2020-05-08 20:00:00* Test Item Value Reference Range Interpretation Comments Calcium Level (test code = 24201-8) 9.2 8.4-10.2 [facility] total bilirubin measurement (mass/volume)2020-05-08 20:00:00* Test Item Value Reference Range Interpretation Comments Total Bilirubin (test code = 1975-2) 0.7 0.2-1.2 [facility] HospitalFluoroscopic procedure less than one hour [id number] 20:00:00* Test Item Value Reference Range Interpretation Comments Aspartate Amino Transf (AST/SGOT) (test code = Aspartate Amino Transf (AST/SGOT)) 33 5-34 [facility] alanine aminotransferase measurement (enzymatic activity/volume)2020-05-08 20:00:00* Test Item Value Reference Range Interpretation Comments Alanine Aminotransferase (ALT/SGPT) (test code = 1742-6) 46 0-55 [facility] protein measurement (mass/volume)2020-05-08 20:00:00* Test Item Value Reference Range Interpretation Comments Total Protein (test code = 2885-2) 7.1 6.5-8.1 [facility] albumin measurement (mass/volume)2020-05-08 20:00:00* Test Item Value Reference Range Interpretation Comments Albumin (test code = 1751-7) 4.3 3.5-5.0 [facility] HospitalPlasma globulin measurement (mass/volume) 2020-05-08 20:00:00* Test Item Value Reference Range Interpretation Comments Globulin (test code = 20617-4) 2.8 2.3-3.5 [facility]er[facility] albumin/globulin mass [id number] 20:00:00* Test Item Value Reference Range Interpretation Comments Albumin/Globulin Ratio (test code = 1759-0) 1.5 0.8-2.0 [facility] alkaline phosphatase measurement (enzymatic activity/volume)2020-05-08 20:00:00* Test Item Value Reference Range Interpretation Comments Alkaline Phosphatase (test code = 6768-6) 55 40-150 [facility] creatine kinase measurement (enzymatic activity/volume)2020-05-08 20:00:00* Test Item Value Reference Range Interpretation Comments Creatine Kinase (test code = 2157-6) 185 30-200 [facility] creatine kinase MB measurement (mass/volume)2020-05-08 20:00:00* Test Item Value Reference Range Interpretation Comments Creatine Kinase MB (test code = 02220-7) 2.00 0-5.0 [facility] HospitalTroponin I measurement by highly sensitive enzyme [id number] 20:00:00* Test Item Value Reference Range Interpretation Comments Troponin I (test code = 73985-5) < 0.001 0-0.300 [facility]
--- OUTSIDE RECORDS SUMMARY | 2020-06-10 11:42 | XMS REPORT | Continuity of Care Document ---
Author Author [facility] t Organization [facility] Address [address] [place] [address] Phone Unavailable Care Team Providers Care Sports Marketer Name Role Phone BELÉN MUNOZ PCP Brown CURIEL YICHING Attphys Unavailable SANDHIRaquel Landry AMBICA Attphys Unavailable Brown CURIEL YICHING Admphys Unavailable Problems Condition Name Condition Details Condition Category Status Onset Date Resolution Date Last Treatment Date Treating Clinician Comments Source Gastritis Problem Active [facility] Rhabdomyolysis Problem Active [facility] Open wound of lower extremity Problem Active [facility] Back pain Problem Active [facility] Allergies, Adverse Reactions, Alerts This patient has no known allergies or adverse reactions. Social History Social Habit Start Date Stop Date Quantity Comments Source Sex Ass[birth year] At 1945 00:00:00 1945 00:[birth year]:00 Male [facility] Medications Ordered Medication Name Filled Medication Name Start Date Stop Da te Current Medication? Ordering Clinician Indication Dosage Frequency Signature (SIG) Comments Components Source Cefuroxime Axetil (Cefuroxime) 250 Mg TABLET Cefuroxim e Axetil (Cefuroxime) 250 Mg TABLET 2020-05-28 05:24:00 Yes 500 Every 12 Hours [facility] Digoxin Digoxin 2020-05-28 05:24:00 Yes .125 Every Mor regla [facility] Metoprolol Tartrate Metoprolol Tartrate 2020-05-28 05:24:00 Yes 50 Every 12 Hours [facility] Apixaban (Eliquis) 5 Mg TAB.DS.PK Apixaban (Eliquis) 5 Mg TAB.DS.PK Yes 5 Twice A Day [facility] Atorvastatin Calcium Atorvastatin Calcium Yes 10 Today At 9:00PM [facility] Finasteride Finasteride Yes 5 Bedtime [facility] Glipizide Glipizide Yes 10 Daily [facility] Lisinopril Lisinopril Yes 20 Daily [facility] Metformin Hcl Metformin Hcl Yes 500 Twice A Day [facility] Tamsulosin Hcl (Flomax*) 0.4 Mg CAP Tamsulosin Hcl (Flomax*) 0.4 Mg C AP Yes .4 Daily [facility] Vital Signs Vital Name Observation Time Observation Value Comments Source Body Temperature 2020-05-28 08:10:00 97.6 [degF] [facility] BMI (Body Mass Index) 2020-05-25 07:30:00 27.7 kg/m2 [facility] Weight 2020-05-24 21:59:00 182 [lb_av] [facility] Body Temperature 2020-05-08 23:01:00 97.7 [degF] [facility] Weight 2020-05-08 19:47:00 182 [lb_av] [facility] BMI (Body Mass Index) 2020-05-08 19:47:00 25.4 kg/m2 [facility] Procedures Procedure Date / Time Performed Performing Clinician [facility] e X-ray of chest, two views 2020-05-08 00:00:00 [facility] Plan of Care Planned Activity Planned Date Details Comments Source Instructions Puncture Wound [facility] Encounters Start Date/Time End Date/Time Encounter Type Admission Type [facility] Care Department Encounter ID Source 2020-05-27 13:01:00 2020-05-25 01:11:00 Admitted Inpatient 1 YOHANA CURIEL [facility] [id number] [facility] 2020-05-08 19:30:00 2020-05-08 23:16:00 Departed Emergency Room 1 SARA YEAGER [facility] [id number] I [facility] Results Test Description Test Time Test Comments Results Result Comments Source Capillary blood glucose measurement by glucometer (mas s/volume) 2020-05-28 07:41:00 Test Item Bedside Glucose (test code = 07427-1) 105 70-120 Meter ID: [id number] [facility] HospitalBlood leukocytes automated count (number/volume)2020-05-28 05:00:00* Test Item Value Reference Range Interpretation Comments White Blood Count (test code = 6690-2) 4.71 4.8-10.8 [facility] erythrocytes automated count (number/volume)2020-05-28 05:00:00* Test Item Value Reference Range Interpretation Comments Red Blood Count (test code = 789-8) 3.72 4.3-5.7 [facility] hemoglobin measurement (moles/volume)2020-05-28 05:00:00* Test Item Value Reference Range Interpretation Comments Hemoglobin (test code = 19653-6) 12.4 14.0-18.0 [facility] HospitalAutomated blood hematocrit (volume fraction)2020-05-28 05:00:00* Test Item Value Reference Range Interpretation Comments Hematocrit (test code = 4544-3) 35.9 38.2-49.6 [facility] HospitalAutomated erythrocyte mean corpuscular iszzuc6524-85-69 05:00:00* Test Item Value Reference Range Interpretation Comments Mean Corpuscular Volume (test code = 787-2) 96.5 81-99 [facility] HospitalAutomated erythrocyte mean corpuscular hemoglobin (mass per erythrocyte)2020-05-28 05:00:00* Test Item Value Reference Range Interpretation Comments Mean Corpuscular Hemoglobin (test code = 785-6) 33.3 28-32 [facility] HospitalAutomated erythrocyte mean corpuscular hemoglobin concentration measurement (mass/volume)2020-05-28 05:00:00* Test Item Value Reference Range Interpretation Comments Mean Corpuscular Hemoglobin Concent (test code = 786-4) 34.5 31-35 [facility] HospitalRDW EueKe-Qkc6961-81-18 05:00:00* Test Item Value Reference Range Interpretation Comments Red Cell Distribution Width (test code = 78207-3) 12.7 11.7 -14.4 [facility] HospitalAutomated blood platelet count (count/volume)2020-05-28 05:00:00* Test Item Value Reference Range Interpretation Comments Platelet Count (test code = 777-3) 148 140-360 [facility] HospitalAutomated blood segmented neutrophil count as percentage of total xdrckfjynb9396-48-76 05:00:00* Test Item Value Reference Range Interpretation Comments Neutrophils (%) (Auto) (test code = 51710-0) 67.6 38.7-80.0 [facility] HospitalAutomated blood lymphocyte count as percentage ot total xxdttserdd2720-18-89 05:00:00* Test Item Value Reference Range Interpretation Comments Lymphocytes (%) (Auto) (test code = 736-9) 18.5 18.0-39.1 [facility] HospitalAutomated blood monocyte count as percentage of total gwegjausjj6449-97-49 05:00:00* Test Item Value Reference Range Interpretation Comments Monocytes (%) (Auto) (test code = 5905-5) 7.4 4.4-11.3 [facility] HospitalAutomated blood eosinophil count as percentage of total dsolvfirtp2293-76-88 05:00:00* Test Item Value Reference Range Interpretation Comments Eosinophils (%) (Auto) (test code = 713-8) 5.5 0.0-6.0 [facility] HospitalAutomated blood basophil count as percentage of total hcbrkaxwvo5296-00-68 05:00:00* Test Item Value Reference Range Interpretation Comments Basophils (%) (Auto) (test code = 706-2) 0.6 0.0-1.0 [facility] HospitalFluoroscopic procedure less than one hour ydbaumpa6389-97-10 05:00:00* Test Item Value Reference Range Interpretation Comments IM GRANULOCYTES % (test code = IM GRANULOCYTES %) 0.4 0.0- 1.0 [facility] HospitalAutomated blood neutrophil count 2020-05-28 05:00:00* Test Item Value Reference Range Interpretation Comments Neutrophils # (Auto) (test code = 751-8) 3.2 2.1-6.9 [facility] HospitalBlood lymphocytes count (number/volume) 2020-05-28 05:00:00* Test Item Value Reference Range Interpretation Comments Lymphocytes # (Auto) (test code = 96130-7) 0.9 1.0-3.2 [facility] HospitalBlood monocytes automated count (number/volume)2020-05-28 05:00:00* Test Item Value Reference Range Interpretation Comments Monocytes # (Auto) (test code = 742-7) 0.4 0.2-0.8 [facility] HospitalAutomated blood eosinophil count 2020-05-28 05:00:00* Test Item Value Reference Range Interpretation Comments Eosinophils # (Auto) (test code = 711-2) 0.3 0.0-0.4 [facility] HospitalAutomated blood basophil count (count/volume)2020-05-28 05:00:00* Test Item Value Reference Range Interpretation Comments Basophils # (Auto) (test code = 704-7) 0.0 0.0-0.1 [facility] HospitalFluoroscopic procedure less than one hour ezwqlzgh4758-90-64 05:00:00* Test Item Value Reference Range Interpretation Comments Absolute Immature Granulocyte (auto (simón t code = Absolute Immature Granulocyte (auto) 0.02 0-0.1 [facility] sodium measurement (moles/volume)2020-05-28 05:00:00* Test Item Value Reference Range Interpretation Comments Sodium Level (test code = 2951-2) 139 136-145 [facility] or plasma potassium measurement (moles/volume)2020-05-28 05:00:00* Test Item Value Reference Range Interpretation Comments Potassium Level (test code = 2823-3) 4.0 3.5-5.1 [facility] or plasma chloride measurement (moles/volume)2020-05-28 05:00:00* Test Item Value Reference Range Interpretation Comments Chloride Level (test code = 2075-0) 107 98-107 [facility]baller[facility] or plasma carbon dioxide, total measurement (moles/volume)2020-05-28 05:00:00* Test Item Value Reference Range Interpretation Comments Carbon Dioxide Level (test code = 2028-9) 26 22-29 [facility]baller[facility] or plasma anion tfi4750-79-02 05:00:00* Test Item Value Reference Range Interpretation Comments Anion Gap (test code = 79512-2) 10.0 8-16 [facility] or plasma urea nitrogen measurement (mass/volume)2020-05-28 05:00:00* Test Item Value Reference Range Interpretation Comments Blood Urea Nitrogen (test code = 3094-0) 11 7-26 [facility] or plasma creatinine measurement (mass/volume)2020-05-28 05:00:00* Test Item Value Reference Range Interpretation Comments Creatinine (test code = 2160-0) 0.72 0.72-1.25 [facility] or plasma urea nitrogen/creatinine mass iisjq3093-54-39 05:00:00* Test Item Value Reference Range Interpretation Comments BUN/Creatinine Ratio (test code = 3097-3) 15 6-25 [facility] HospitalEstimated glomerular filtration rate (GFR) beoxoadahwlsh7379-80-68 05:00:00* Test Item Value Reference Range Interpretation Comments Estimat Glomerular Filtration Rate (test code = 275477745) > 60 >60 Ranges were taken from the National Kidney Disease Education Program and the [facility] Kidney Foundation literature.Reference ranges:60 or greater: Gqmmwz79-42 ( for 3 consecutive months): Chronic kidney disease 15 or less: Kidney failureTexas Children's HospitalGlucose xalsrlyoyqm5172-58-90 05:00:00* Test Item Value Reference Range Interpretation Comments Glucose Level (test code = RQU0964) 95 74-118 [facility] or plasma calcium measurement (mass/volume)2020-05-28 05:00:00* Test Item Value Reference Range Interpretation Comments Calcium Level (test code = 28305-3) 8.4 8.4-10.2 [facility] or plasma magnesium measurement (mass/volume)2020-05-28 05:00:00* Test Item Value Reference Range Interpretation Comments Magnesium Level (test code = 92165-2) 1.8 1.3-2.1 [facility] or plasma creatine kinase measurement (enzymatic activity/volume)2020-05-28 05:00:00* Test Item Value Reference Range Interpretation Comments Creatine Kinase (test code = 2157-6) 392 30-200 [facility] HospitalFluoroscopic procedure less than one hour ntklxzvb6544-33-17 05:20:00* Test Item Value Reference Range Interpretation Comments Hemoglobin A1c Percent (test code = Hemoglobin A1c Percent) 6.3 4.0-7.0 [facility] or plasma triglyceride measurement (mass/volume)2020-05-26 05:20:00* Test Item Value Reference Range Interpretation Comments Triglycerides Level (test code = 2571-8) 72 0-149 [facility] or plasma cholesterol measurement (mass/volume)2020-05-26 05:20:00* Test Item Value Reference Range Interpretation Comments Cholesterol Level (test code = 2093-3) 98 0-199 Less than 200 mg/dL Low Dyuq784 - 239 mg/dL Borderline Xtos683 m g/dl and greater High Risk [facility] or plasma cholesterol in LDL measurement (mass/volume) 2020-05-26 05:20:00* Test Item Value Reference Range Interpretation Comments LDL Cholesterol (test code = 2089-1) 42 60-130 [facility] or plasma cholesterol in HDL measurement (mass/volume)2020-05-26 05:20:00* Test Item Value Reference Range Interpretation Comments HDL Cholesterol (test code = 2085-9) 42 40-60 [facility] or plasma total cholesterol/cholesterol in HDL mass rzkhu4151-98-66 05:20:00* Test Item Value Reference Range Interpretation Comments Cholesterol/HDL Ratio (test code = 9830-1) 2.3 3.9-4.7 [facility] or plasma thyrotropin measurement by detection limit <= 0.005 miu/l (units/volume)2020-05-26 05:20:00* Test Item Value Reference Range Interpretation Comments Thyroid Stimulating Hormone (TSH) (test code = 51871-0) 4.132 0.350-4.940 [facility]baller[facility] or plasma creatine kinase MB measurement (mass/volume)2020-05-25 17:06:00* Test Item Value Reference Range Interpretation Comments Creatine Kinase MB (test code = 77378-5) 3.80 0-5.0 [facility] HospitalTroponin I measurement by highly sensitive enzyme ovxmldpvgca3899-13-18 17:06:00* Test Item Value Reference Range Interpretation Comments Troponin I (test code = 26949-8) 0.005 0-0.300 [facility] or plasma total bilirubin measurement (mass/volume)2020-05-25 07:55:00* Test Item Value Reference Range Interpretation Comments Total Bilirubin (test code = 1975-2) 1.2 0.2-1.2 [facility] HospitalFluoroscopic procedure less than one hour mmhiddsp3133-79-97 07:55:00* Test Item Value Reference Range Interpretation Comments Aspartate Amino Transf (AST/SGOT) (test code = Aspartate Amino Transf (AST/SGOT)) 49 5-34 [facility] or plasma alanine aminotransferase measurement (enzymatic activity/volume)2020-05-25 07:55:00* Test Item Value Reference Range Interpretation Comments Alanine Aminotransferase (ALT/SGPT) (test code = 1742-6) 42 0-55 [facility] or plasma protein measurement (mass/volume)2020-05-25 07:55:00* Test Item Value Reference Range Interpretation Comments Total Protein (test code = 2885-2) 7.2 6.5-8.1 [facility] or plasma albumin measurement (mass/volume)2020-05-25 07:55:00* Test Item Value Reference Range Interpretation Comments Albumin (test code = 1751-7) 3.9 3.5-5.0 [facility] HospitalPlasma globulin measurement (mass/volume) 2020-05-25 07:55:00* Test Item Value Reference Range Interpretation Comments Globulin (test code = 31484-2) 3.3 2.3-3.5 [facility] or plasma albumin/globulin mass cagmt5904-69-08 07:55:00* Test Item Value Reference Range Interpretation Comments Albumin/Globulin Ratio (test code = 1759-0) 1.2 0.8-2.0 [facility] or plasma alkaline phosphatase measurement (enzymatic activity/volume)2020-05-25 07:55:00* Test Item Value Reference Range Interpretation Comments Alkaline Phosphatase (test code = 6768-6) 56 40-150 [facility] HospitalFEMUR TWO VIEW MINIMUM [id number] 04:18:00 [facility] [address] [address] Patient Name: ALICIA SCHNEIDER MR #: [id number] : 1945 Age/Sex: 75/M Req #: [id number] Adm Physician: YOHANA CURIEL MD Ordered by: JEANNIE TOMAS DO Report #: [id number] Location: [facility] Room/Bed: [address] [address] Procedure: [id number] DX/FEMUR TWO VIEW MINIMUM RIGHT Exam Date: [...] COPY TO: JEANNIE TOMAS DO LUMBAR 3 [id number] 23:26:00 [address] [place] [address] Patient Name: ALICIA SCHNEIDER MR #: [id number] : 1945 Age/Sex: 75/M Req #: [id number] Adm Physician: Ordered by: JEANNIE TOMAS DO Report #: [id number] Location: ER Room/Bed: Procedure: [id number] DX/LUMBAR 3 V IEW Exam Date: 05/24/20 [...] COPY TO: JEANNIE TOMAS DO LOWER LEG [id number] 23:24:00 [place] [address] Patient Name: ALICIA SCHNEIDER MR #: [id number] : 1945 Age/Sex: 75/M Req #: [id number] Adm Physician: Ordered by: JEANNIE TOMAS DO Report #: [id number] Location: ER Room/Bed: Procedure: [id number] DX/LOWER LEG LEFT Exam Date: 05/24/20 Exam [...] TO : JEANNIE TOMAS DO CHEST 2 [id number] 20:17:00 [address] [place] [address] Patient Name: ALICIA SCHNEIDER MR #: [id number] : 1945 Age/Sex: 75/M Req #: [id number] Adm Physician: Ordered by: SARA YEAGER DO Report #: [id number] Location: ER R oom/Bed: Procedure: [id number] DX/CHEST 2 VIEWS Exam Date: 05/08/20 Exam [...] Count (test code = 6690-2) 8.66 4.8-10.8 [facility] HospitalBlood erythrocytes automated count (number/volume)2020-05-08 20:00:00* Test Item Value Reference Range Interpretation Comments Red Blood Count (test code = 789-8) 4.43 4.3-5.7 [facility] HospitalBlood hemoglobin measurement (moles/volume)2020-05-08 20:00:00* Test Item Value Reference Range Interpretation Comments Hemoglobin (test code = 85768-3) 14.8 14.0-18.0 [facility] HospitalAutomated blood hematocrit (volume fraction)2020-05-08 20:00:00* Test Item Value Reference Range Interpretation Comments Hematocrit (test code = 4544-3) 42.9 38.2-49.6 [facility] HospitalAutomated erythrocyte mean corpuscular hammpd9220-94-90 20:00:00* Test Item Value Reference Range Interpretation Comments Mean Corpuscular Volume (test code = 787-2) 96.8 81-99 [facility] HospitalAutomated erythrocyte mean corpuscular hemoglobin (mass per erythrocyte)2020-05-08 20:00:00* Test Item Value Reference Range Interpretation Comments Mean Corpuscular Hemoglobin (test code = 785-6) 33.4 28-32 [facility] HospitalAutomated erythrocyte mean corpuscular hemoglobin concentration measurement (mass/volume)2020-05-08 20:00:00* Test Item Value Reference Range Interpretation Comments Mean Corpuscular Hemoglobin Concent (test code = 786-4) 34.5 31-35 [facility] HospitalRDW IfuDk-Jpr3199-28-28 20:00:00* Test Item Value Reference Range Interpretation Comments Red Cell Distribution Width (test code = 53225-1) 12.9 11.7 -14.4 [facility] HospitalAutomated blood platelet count (count/volume)2020-05-08 20:00:00* Test Item Value Reference Range Interpretation Comments Platelet Count (test code = 777-3) 134 140-360 [facility] HospitalAutomated blood segmented neutrophil count as percentage of total xfuxngjnar2783-22-28 20:00:00* Test Item Value Reference Range Interpretation Comments Neutrophils (%) (Auto) (test code = 65131-6) 83.6 38.7-80.0 [facility] HospitalAutomated blood lymphocyte count as percentage ot total ryxxxzmral8835-22-29 20:00:00* Test Item Value Reference Range Interpretation Comments Lymphocytes (%) (Auto) (test code = 736-9) 8.4 18.0-39.1 [facility] HospitalAutomated blood monocyte count as percentage of total rigfdislok1032-35-26 20:00:00* Test Item Value Reference Range Interpretation Comments Monocytes (%) (Auto) (test code = 5905-5) 4.6 4.4-11.3 [facility] HospitalAutomated blood eosinophil count as percentage of total hgfopfhobt2455-66-42 20:00:00* Test Item Value Reference Range Interpretation Comments Eosinophils (%) (Auto) (test code = 713-8) 2.8 0.0-6.0 [facility] basophil count as percentage of total qguxrngozd6186-50-92 20:00:00* Test Item Value Reference Range Interpretation Comments Basophils (%) (Auto) (test code = 706-2) 0.3 0.0-1.0 [facility] HospitalFluoroscopic procedure less than one hour ubvbzipy2332-28-03 20:00:00* Test Item Value Reference Range Interpretation Comments IM GRANULOCYTES % (test code = IM GRANULOCYTES %) 0.3 0.0- 1.0 [facility] HospitalAutomated blood neutrophil count 2020-05-08 20:00:00* Test Item Value Reference Range Interpretation Comments Neutrophils # (Auto) (test code = 751-8) 7.2 2.1-6.9 [facility] HospitalBlood lymphocytes count (number/volume) 2020-05-08 20:00:00* Test Item Value Reference Range Interpretation Comments Lymphocytes # (Auto) (test code = 11277-4) 0.7 1.0-3.2 [facility] HospitalBlood monocytes automated count (number/volume)2020-05-08 20:00:00* Test Item Value Reference Range Interpretation Comments Monocytes # (Auto) (test code = 742-7) 0.4 0.2-0.8 [facility] HospitalAutomated blood eosinophil count 2020-05-08 20:00:00* Test Item Value Reference Range Interpretation Comments Eosinophils # (Auto) (test code = 711-2) 0.2 0.0-0.4 [facility] HospitalAutomated blood basophil count (count/volume)2020-05-08 20:00:00* Test Item Value Reference Range Interpretation Comments Basophils # (Auto) (test code = 704-7) 0.0 0.0-0.1 [facility] HospitalFluoroscopic procedure less than one hour wjmzwdjj9815-32-30 20:00:00* Test Item Value Reference Range Interpretation Comments Absolute Immature Granulocyte (auto (simón t code = Absolute Immature Granulocyte (auto) 0.03 0-0.1 [facility] sodium measurement (moles/volume)2020-05-08 20:00:00* Test Item Value Reference Range Interpretation Comments Sodium Level (test code = 2951-2) 139 136-145 [facility] plasma potassium measurement (moles/volume)2020-05-08 20:00:00* Test Item Value Reference Range Interpretation Comments Potassium Level (test code = 2823-3) 4.1 3.5-5.1 [facility] or plasma chloride measurement (moles/volume)2020-05-08 20:00:00* Test Item Value Reference Range Interpretation Comments Chloride Level (test code = 2075-0) 103 98-107 [facility] or plasma carbon dioxide, total measurement (moles/volume)2020-05-08 20:00:00* Test Item Value Reference Range Interpretation Comments Carbon Dioxide Level (test code = 2028-9) 25 22-29 [facility] or plasma anion sqt5305-29-85 20:00:00* Test Item Value Reference Range Interpretation Comments Anion Gap (test code = 14870-1) 15.1 8-16 [facility] plasma urea nitrogen measurement (mass/volume)2020-05-08 20:00:00* Test Item Value Reference Range Interpretation Comments Blood Urea Nitrogen (test code = 3094-0) 12 7-26 [facility] plasma creatinine measurement (mass/volume)2020-05-08 20:00:00* Test Item Value Reference Range Interpretation Comments Creatinine (test code = 2160-0) 0.83 0.72-1.25 [facility] plasma urea nitrogen/creatinine mass yxjpv1146-56-74 20:00:00* Test Item Value Reference Range Interpretation Comments BUN/Creatinine Ratio (test code = 3097-3) 14 6-25 [facility] HospitalEstimated glomerular filtration rate (GFR) pqcichaadtdkj0097-55-27 20:00:00* Test Item Value Reference Range Interpretation Comments Estimat Glomerular Filtration Rate (test code = 432708787) > 60 >60 Ranges were taken from the National Kidney Disease Education Program and the [facility] Kidney Foundation literature.Reference ranges:60 or greater: Xwcioh85-22 ( for 3 consecutive months): Chronic kidney disease 15 or less: Kidney failureTexas Children's HospitalGlucose nvgzjymbpik3924-70-64 20:00:00* Test Item Value Reference Range Interpretation Comments Glucose Level (test code = QRO0732) 153 74-118 [facility] or plasma calcium measurement (mass/volume)2020-05-08 20:00:00* Test Item Value Reference Range Interpretation Comments Calcium Level (test code = 40766-8) 9.2 8.4-10.2 [facility] or plasma total bilirubin measurement (mass/volume)2020-05-08 20:00:00* Test Item Value Reference Range Interpretation Comments Total Bilirubin (test code = 1975-2) 0.7 0.2-1.2 [facility] HospitalFluoroscopic procedure less than one hour wopqeumm9518-47-47 20:00:00* Test Item Value Reference Range Interpretation Comments Aspartate Amino Transf (AST/SGOT) (test code = Aspartate Amino Transf (AST/SGOT)) 33 5-34 [facility] or plasma alanine aminotransferase measurement (enzymatic activity/volume)2020-05-08 20:00:00* Test Item Value Reference Range Interpretation Comments Alanine Aminotransferase (ALT/SGPT) (test code = 1742-6) 46 0-55 [facility] or plasma protein measurement (mass/volume)2020-05-08 20:00:00* Test Item Value Reference Range Interpretation Comments Total Protein (test code = 2885-2) 7.1 6.5-8.1 [facility] [facility] (mass/volume)2020-05-08 20:00:00* Test Item Value Reference Range Interpretation Comments Albumin (test code = 1751-7) 4.3 3.5-5.0 [facility] 2020-05-08 20:00:00* Test Item Value Reference Range Interpretation Comments Globulin (test code = 66495-2) 2.8 2.3-3.5 [facility] albumin/globulin mass [id number] 20:00:00* Test Item Value Reference Range Interpretation Comments Albumin/Globulin Ratio (test code = 1759-0) 1.5 0.8-2.0 [facility] alkaline phosphatase measurement (enzymatic activity/volume)2020-05-08 20:00:00* Test Item Value Reference Range Interpretation Comments Alkaline Phosphatase (test code = 6768-6) 55 40-150 [facility] creatine kinase measurement (enzymatic activity/volume)2020-05-08 20:00:00* Test Item Value Reference Range Interpretation Comments Creatine Kinase (test code = 2157-6) 185 30-200 [facility] creatine kinase MB measurement (mass/volume)2020-05-08 20:00:00* Test Item Value Reference Range Interpretation Comments Creatine Kinase MB (test code = 20817-3) 2.00 0-5.0 [facility] by highly sensitive enzyme [id number] 20:00:00* Test Item Value Reference Range Interpretation Comments Troponin I (test code = 75482-3) < 0.001 0-0.300 [facility]
== END 2020-05-28 11:11 | disposition home or self-care (01) | DRG 683 ==
LOC: ER 22:15 → ERHOLD 05-25 01:11 → MED/SURG2 05-25 06:31 → OBSVTOIN 05-27 13:01
PROVIDERS: ADMIT Internal Medicine; ATTEND Internal Medicine
DX: N17.9 Acute kidney failure, unspecified (principal); M62.82 Rhabdomyolysis; S71.132A Puncture wound without foreign body, left thigh, initial encounter; Z79.01 Long term (current) use of anticoagulants; E11.9 Type 2 diabetes mellitus without complications; I10 Essential (primary) hypertension; Z11.59 Encounter for screening for other viral diseases; W20.8XXA Other cause of strike by thrown, projected or falling object, initial encounter; Y93.H3 Activity, building and construction; Y92.69 Other specified industrial and construction area as the place of occurrence of the external cause; E78.5 Hyperlipidemia, unspecified; M54.5 Low back pain; N40.0 Benign prostatic hyperplasia without lower urinary tract symptoms; I48.0 Paroxysmal atrial fibrillation
CPT/HCPCS: 36415; 72100; 80048; 80053; 80061; 82550; 82553; 82948; 83036; 83735; 84443; 84484; 85025; 90471; 90714; 93005; 97139; 99284; G0378; J1160; J1817; J2543; J7030; U0002

== ENCOUNTER 2021-06-02 10:53 | Inpatient (IN) | payer MEDICARE ==
[~2021-06-02] VITALS: Ht 172.7 cm; Wt 81.6 kg
[~2021-06-02 10:53] MED LIST: ATORVASTATIN CA10 MG PO; CEFUROXIME250 MG PO; DIGOXIN125 MCG PO; ELIQUIS5 M1; FINASTERIDE5 MG PO; FLOMAX0.4 MG PO; GLIPIZIDE5 MG PO; LISINOPRIL10 MG PO; METFORMIN HCL500 MG PO; METOPROLOL TART50 MG PO
[2021-06-02 12:31] LABS: BASOPHILS % 0.3 % (0.0-1.0); EOSINOPHILS # (AUTO) 0.1 (0.0-0.4); HEMATOCRIT 39.5 % (38.2-49.6); HEMOGLOBIN 13.8 g/dL (14.0-18.0); LYMPHOCYTES # (AUTO) 0.7 (1.0-3.2); LYMPHOCYTES % 11.8 % (18.0-39.1); MEAN CORPUSCULAR HEMOGLOBIN 34.2 pg (28-32); MEAN CORPUSCULAR HGB CONC 34.9 g/dL (31-35); MONOCYTES # (AUTO) 0.5 (0.2-0.8); MONOCYTES % 8.3 % (4.4-11.3); NEUTROPHILS # (AUTO) 4.7 (2.1-6.9); NEUTROPHILS % 77.3 % (38.7-80.0); PLATELET COUNT 156 x10e3/uL (140-360); RED BLOOD COUNT 4.03 x10e6/uL (4.3-5.7); RED CELL DISTRIBUTION WIDTH 13.5 % (11.7-14.4)
[2021-06-02 12:48] LABS: INR 1.43; PROTHROMBIN TIME 18.2 seconds (11.9-14.5)
[2021-06-02 12:56] LABS: ALBUMIN/GLOBULIN RATIO 1.3 (0.8-2.0); ANION GAP 11.6 mmol/L (8-16); CALCIUM 8.9 mg/dL (8.4-10.2); CREATININE, SERUM 0.8 mg/dL (0.72-1.25); POTASSIUM 4.6 mmol/L (3.5-5.1)
[2021-06-02 13:03] LABS: CREATINE KINASE MB 1.6 ng/mL (0-5.0)
[2021-06-02] MEDS ORDERED: ONDANSETRON HCL INJ 2MG/ML 2ML 2 MG/ML VIAL IV PRN (13:45)
[2021-06-02] MEDS ORDERED: MULTIVITAMINS- 12 INJECTION 10 ML, FOLIC ACID MDV 5 MG, THIAMINE HCL INJ 100 MG in SODI... IV ONE (14:00)
[2021-06-02] MEDS: FAMOTIDINE 20 MG/2 ML VIAL IV SCH ×2 (16:08→22:02)
[2021-06-02 18:15] LABS: COLOR,URINE YELLOW (YELLOW)
[2021-06-02 18:16] LABS: CLARITY,URINE CLEAR (CLEAR); KETONES,URINE NEGATIVE (NEGATIVE); LEUKOCYTE ESTERASE ,URINE NEGATIVE (NEGATIVE); NITRITE,URINE NEGATIVE (NEGATIVE); PROTEIN,URINE DIPSTICK NEGATIVE (NEGATIVE); URINE UROBILINOGEN 0.2 mg/dL (0.2 - 1)
[2021-06-02 18:19] LABS: RBC,URINE 0-5 /HPF (0-5); WBC,URINE (MAN) 0-5 /HPF (0-5)
[2021-06-02 20:35] LABS: CREATINE KINASE MB 1.4 ng/mL (0-5.0)
[2021-06-03] VITALS (9 sets, daily range): BP systolic 125–164; BP diastolic 59–73
[2021-06-03] MEDS ORDERED: AMIODARONE HCL200 MG PO (04:55)
[2021-06-03] MEDS ORDERED: ASPIRIN81 MG PO (04:55)
[2021-06-03 06:15] LABS: BASOPHILS % 0.6 % (0.0-1.0); EOSINOPHILS # (AUTO) 0.2 (0.0-0.4); EOSINOPHILS % 4.7 % (0.0-6.0); HEMATOCRIT 36.9 % (38.2-49.6); HEMOGLOBIN 12.9 g/dL (14.0-18.0); LYMPHOCYTES # (AUTO) 0.7 (1.0-3.2); LYMPHOCYTES % 14.8 % (18.0-39.1); MEAN CORPUSCULAR HEMOGLOBIN 34.1 pg (28-32); MEAN CORPUSCULAR VOLUME 97.6 fL (81-99); MONOCYTES # (AUTO) 0.4 (0.2-0.8); MONOCYTES % 8.4 % (4.4-11.3); NEUTROPHILS # (AUTO) 3.3 (2.1-6.9); NEUTROPHILS % 71.1 % (38.7-80.0); PLATELET COUNT 138 x10e3/uL (140-360); RED BLOOD COUNT 3.78 x10e6/uL (4.3-5.7); RED CELL DISTRIBUTION WIDTH 13.6 % (11.7-14.4)
[2021-06-03 06:33] LABS: ALBUMIN 3.5 g/dL (3.5-5.0); ALBUMIN/GLOBULIN RATIO 1.3 (0.8-2.0); ANION GAP 12.3 mmol/L (8-16); CALCIUM 8.5 mg/dL (8.4-10.2); CHOL/HDL RATIO 2.3 (3.9-4.7); CREATININE, SERUM 0.82 mg/dL (0.72-1.25); POTASSIUM 4.3 mmol/L (3.5-5.1)
[2021-06-03 06:56] LABS: CREATINE KINASE MB 1.4 ng/mL (0-5.0)
[2021-06-03] MEDS: FAMOTIDINE 20 MG/2 ML VIAL IV SCH ×2 (09:15→21:33)
[2021-06-03] MEDS: METFORMIN HCL 500 MG TAB PO SCH (17:15)
[2021-06-03] MEDS: ATORVASTATIN 10 MG TAB PO SCH (21:33)
[2021-06-04] VITALS (8 sets, daily range): BP systolic 119–155; BP diastolic 42–68
[2021-06-04 06:22] LABS: EOSINOPHILS # (AUTO) 0.2 (0.0-0.4); EOSINOPHILS % 5.1 % (0.0-6.0); HEMATOCRIT 39.5 % (38.2-49.6); HEMOGLOBIN 14.1 g/dL (14.0-18.0); LYMPHOCYTES # (AUTO) 0.7 (1.0-3.2); MEAN CORPUSCULAR HEMOGLOBIN 34.9 pg (28-32); MEAN CORPUSCULAR HGB CONC 35.7 g/dL (31-35); MEAN CORPUSCULAR VOLUME 97.8 fL (81-99); MONOCYTES # (AUTO) 0.4 (0.2-0.8); MONOCYTES % 8.5 % (4.4-11.3); NEUTROPHILS # (AUTO) 2.8 (2.1-6.9); NEUTROPHILS % 67.2 % (38.7-80.0); PLATELET COUNT 152 x10e3/uL (140-360); RED BLOOD COUNT 4.04 x10e6/uL (4.3-5.7); RED CELL DISTRIBUTION WIDTH 13.8 % (11.7-14.4)
[2021-06-04 06:50] LABS: CALCIUM 8.4 mg/dL (8.4-10.2); CREATININE, SERUM 0.76 mg/dL (0.72-1.25)
[2021-06-04] MEDS: FAMOTIDINE 20 MG/2 ML VIAL IV SCH ×2 (09:34→21:45)
[2021-06-04] MEDS: TAMSULOSIN HCL 0.4 MG CAP PO SCH (09:34)
[2021-06-04] MEDS: ASPIRIN 81 MG CHEW TAB PO SCH (09:34)
[2021-06-04] MEDS: LISINOPRIL 20 MG TAB PO SCH (09:35)
[2021-06-04] MEDS: METFORMIN HCL 500 MG TAB PO SCH ×2 (09:35→17:18)
[2021-06-04] MEDS ORDERED: AMIODARONE HCL 200 MG TAB PO SCH (17:15)
[2021-06-04] MEDS: ATORVASTATIN 10 MG TAB PO SCH (21:45)
[2021-06-05] VITALS (9 sets, daily range): BP systolic 117–153; BP diastolic 54–77
[2021-06-05 05:46] LABS: BASOPHILS % 0.5 % (0.0-1.0); EOSINOPHILS # (AUTO) 0.3 (0.0-0.4); EOSINOPHILS % 4.2 % (0.0-6.0); HEMOGLOBIN 13.9 g/dL (14.0-18.0); LYMPHOCYTES # (AUTO) 0.8 (1.0-3.2); LYMPHOCYTES % 13.7 % (18.0-39.1); MEAN CORPUSCULAR HEMOGLOBIN 34.2 pg (28-32); MEAN CORPUSCULAR HGB CONC 34.8 g/dL (31-35); MEAN CORPUSCULAR VOLUME 98.5 fL (81-99); MONOCYTES # (AUTO) 0.5 (0.2-0.8); MONOCYTES % 8.1 % (4.4-11.3); NEUTROPHILS # (AUTO) 4.5 (2.1-6.9); NEUTROPHILS % 73.2 % (38.7-80.0); PLATELET COUNT 140 x10e3/uL (140-360); RED BLOOD COUNT 4.06 x10e6/uL (4.3-5.7); RED CELL DISTRIBUTION WIDTH 13.7 % (11.7-14.4)
[2021-06-05 06:19] LABS: ANION GAP 12.9 mmol/L (8-16); CALCIUM 8.7 mg/dL (8.4-10.2); CREATININE, SERUM 0.81 mg/dL (0.72-1.25); POTASSIUM 3.9 mmol/L (3.5-5.1)
[2021-06-05] MEDS: ASPIRIN 81 MG CHEW TAB PO SCH (09:00)
[2021-06-05] MEDS: LISINOPRIL 20 MG TAB PO SCH (09:00)
[2021-06-05] MEDS: TAMSULOSIN HCL 0.4 MG CAP PO SCH (09:00)
[2021-06-05] MEDS: METFORMIN HCL 500 MG TAB PO SCH (09:00)
[2021-06-05] MEDS: FAMOTIDINE 20 MG/2 ML VIAL IV SCH ×2 (09:00→21:04)
[2021-06-05] MEDS ORDERED: MECLIZINE HCL 12.5 MG TAB PO PRN (13:45)
[2021-06-05] MEDS ORDERED: ACETAMINOPHEN 325 MG TAB PO PRN (13:45)
[2021-06-05] MEDS ORDERED: DOCUSATE SODIUM 100 MG CAP PO PRN (13:45)
[2021-06-05 14:14] LABS: CHOL/HDL RATIO 2.1 (3.9-4.7)
[2021-06-05] MEDS ORDERED: DEXTROSE 50% SYRINGE 50 ML IV PRN (16:15)
[2021-06-05] MEDS: SODIUM CHLORIDE 0.45% 1,000 ML IV SCH (16:23)
[2021-06-05] MEDS: INSULIN REGULAR, HUMAN 100 UNIT/1 ML SQ SCH ×2 (16:30→21:06)
[2021-06-05] MEDS ORDERED: METOPROLOL TARTRATE 25 MG TAB PO SCH (17:00)
[2021-06-05] MEDS: METOPROLOL TARTRATE 25 MG TAB PO SCH (17:21)
[2021-06-05] MEDS ORDERED: ZOLPIDEM TARTRATE 5 MG TAB PO PRN (21:00)
[2021-06-05] MEDS: ATORVASTATIN 10 MG TAB PO SCH (21:04)
[2021-06-06] VITALS (11 sets, daily range): BP systolic 128–155; BP diastolic 57–75
[2021-06-06] MEDS: SODIUM CHLORIDE 0.45% 1,000 ML IV SCH ×2 (05:02→18:55)
[2021-06-06] MEDS: INSULIN REGULAR, HUMAN 100 UNIT/1 ML SQ SCH ×4 (07:30→21:03)
[2021-06-06] MEDS: TAMSULOSIN HCL 0.4 MG CAP PO SCH (08:33)
[2021-06-06] MEDS: AMIODARONE HCL 200 MG TAB PO SCH (08:33)
[2021-06-06] MEDS: FAMOTIDINE 20 MG/2 ML VIAL IV SCH ×2 (08:33→21:02)
[2021-06-06] MEDS: ASPIRIN 81 MG CHEW TAB PO SCH (08:33)
[2021-06-06] MEDS: METOPROLOL TARTRATE 25 MG TAB PO SCH ×2 (08:34→17:00)
[2021-06-06] MEDS: LISINOPRIL 20 MG TAB PO SCH (08:34)
[2021-06-06] MEDS ORDERED: MIDAZOLAM HCL 2 MG/2 ML VIAL ONE ×2 (09:12→10:16)
[2021-06-06] MEDS ORDERED: FENTANYL CITRATE/PF 100MCG/2 ML INJ ONE (09:13)
[2021-06-06] MEDS ORDERED: GENTAMICIN SULFATE 40 MG/ML 2 ML VIAL ONE (09:13)
[2021-06-06] MEDS ORDERED: LIDOCAINE HCL 2% LOCAL 20 ML VIAL ONE (09:13)
[2021-06-06] MEDS ORDERED: IOPAMIDOL 300MG/ML 50ML INFUS..BTL IV ONE (09:14)
[2021-06-06] MEDS ORDERED: SODIUM CHLORIDE 0.9% 500ML 500 ML ONE (09:14)
[2021-06-06] MEDS ORDERED: Vancomycin IV 1 GM VIAL ONE (09:14)
[2021-06-06] MEDS ORDERED: SODIUM CHLORIDE 0.9% 1000ML 2,000 ML ONE (09:15)
[2021-06-06] MEDS ORDERED: SODIUM CHLORIDE 0.9% 250ML 250 ML ONE (09:15)
[2021-06-06] MEDS ORDERED: MORPHINE SULFATE INJ 2 MG/ML SYR IV PRN (21:00)
[2021-06-06] MEDS: ATORVASTATIN 10 MG TAB PO SCH (21:02)
[2021-06-07] VITALS: BP 149/71
[2021-06-07 05:00] VITALS: BP 159/75
[2021-06-07] MEDS: INSULIN REGULAR, HUMAN 100 UNIT/1 ML SQ SCH ×2 (07:30→11:30)
[2021-06-07 08:09] VITALS: BP 158/78
[2021-06-07 08:32] VITALS: BP 158/78
[2021-06-07] MEDS: ASPIRIN 81 MG CHEW TAB PO SCH (09:58)
[2021-06-07] MEDS: AMIODARONE HCL 200 MG TAB PO SCH (09:58)
[2021-06-07] MEDS: TAMSULOSIN HCL 0.4 MG CAP PO SCH (09:58)
[2021-06-07] MEDS: METOPROLOL TARTRATE 25 MG TAB PO SCH (09:58)
[2021-06-07] MEDS: FAMOTIDINE 20 MG/2 ML VIAL IV SCH (09:58)
[2021-06-07] MEDS: LISINOPRIL 20 MG TAB PO SCH (09:59)
[2021-06-07 12:20] VITALS: BP 151/78
[2021-06-07] MEDS ORDERED: Meclizine Hcl PO (12:21)
[2021-06-07] MEDS ORDERED: PANTOPRAZOLE SO40 MG PO (12:21)
[2021-06-07] MEDS ORDERED: METOPROLOL TART25 MG PO (12:21)
[2021-06-07] MEDS ORDERED: MINOCYCLINE HCL50 MG PO (13:06)
[2021-06-07] MEDS ORDERED: ONDANSETRON HCL 4 MG ORAL DISINTEGRATING TAB PO PRN (13:30)
[2021-06-07] MEDS ORDERED: PANTOPRAZOLE SOD 40 MG TABEC PO SCH (16:30)
[2021-06-07] MEDS ORDERED: FAMOTIDINE 20 MG TAB PO SCH (21:00)
== END 2021-06-07 13:43 | disposition home or self-care (01) | DRG 242 ==
LOC: ER 11:20 → ERHOLD 14:50 → INTOOBSV 14:50 → MED/SURG3 22:11 → OBSVTOIN 06-03 13:48 → INTOOBSV 06-03 13:48 → OBSVTOIN 06-04 13:47 → INTOOBSV 06-04 13:47
PROVIDERS: ADMIT Internal Medicine; ATTEND Internal Medicine
PROC: 0JH606Z Insertion of Pacemaker, Dual Chamber into Chest Subcutaneous Tissue and Fascia, Open Approach (ICD-10-PCS; principal; 2021-06-06)
PROC: 02H63JZ Insertion of Pacemaker Lead into Right Atrium, Percutaneous Approach (ICD-10-PCS; 2021-06-06)
PROC: 02HK3JZ Insertion of Pacemaker Lead into Right Ventricle, Percutaneous Approach (ICD-10-PCS; 2021-06-06)
DX: I49.5 Sick sinus syndrome (principal); I62.03 Nontraumatic chronic subdural hemorrhage; I48.0 Paroxysmal atrial fibrillation; Z20.822 Contact with and (suspected) exposure to COVID-19; E11.9 Type 2 diabetes mellitus without complications; Z79.84 Long term (current) use of oral hypoglycemic drugs; E78.5 Hyperlipidemia, unspecified; I10 Essential (primary) hypertension; N40.0 Benign prostatic hyperplasia without lower urinary tract symptoms
CPT/HCPCS: 33208; 36415; 70450; 70551; 71045; 80048; 80053; 80061; 81001; 82550; 82553; 82948; 83036; 83735; 84484; 85025; 85610; 85730; 87086; 93005; 93306; 93880; 96367; 96372; 96376; 99152; 99153; 99284; C1785; C1898; G0378; J0690; J1580; J1817; J2001; J2250; J3010; J3370; J3411; J7030; J7040; J7050; U0002

== ENCOUNTER 2022-10-10 17:37 | Emergency (ER) | payer MEDICARE ==
[~2022-10-10] VITALS: Ht 172.7 cm; Wt 75.7 kg
[~2022-10-10 17:37] MED LIST changes: +AMIODARONE HCL200 MG PO; +ASPIRIN81 MG PO; +METOPROLOL TART25 MG PO; +MINOCYCLINE HCL50 MG PO; +Meclizine Hcl PO; +PANTOPRAZOLE SO40 MG PO
[2022-10-10] MEDS ORDERED: LIDOCAINE HCL 1% LOCAL INJ 20 ML VIAL INJ ONE (18:00)
[2022-10-10 19:03] VITALS: BP 126/57
== END 2022-10-10 19:08 | disposition home or self-care (01) ==
LOC: ER 17:43
DX: S01.511A Laceration without foreign body of lip, initial encounter (principal); W17.89XA Other fall from one level to another, initial encounter; Y93.89 Activity, other specified; I10 Essential (primary) hypertension; E11.9 Type 2 diabetes mellitus without complications; I25.10 Atherosclerotic heart disease of native coronary artery without angina pectoris; N40.0 Benign prostatic hyperplasia without lower urinary tract symptoms
CPT/HCPCS: 12011; 70450; 72125; 99283; J2001

== ENCOUNTER 2024-12-16 12:40 | Emergency (ER) | payer MEDICARE ==
[~2024-12-16] VITALS: Ht 172.7 cm; Wt 61.2 kg
[~2024-12-16 12:40] MED LIST changes: +ASCORBIC ACID500 MG PO; +Benzonatate PO; +Cholecalciferol PO; +FAMOTIDINE20 MG PO; +HYDROCODON-ACE1 EA12 PO; +KEFLEX125 MG/5 M PO; +LEVO; +LEVOTHYROXINE112 MCG PO; +LORATADINE10 MG PO; +PAXLOVID 300-11 EACH PO; +SORE THROAT LO1 EAC3 PO; +Zinc Sulfate PO
[2024-12-16 12:50] VITALS: TEMP 98.3
[2024-12-16] MEDS ORDERED: SODIUM CHLORIDE FLUSH 10 ML SYR IV PRN (13:15)
[2024-12-16 13:34] LABS: BASOPHILS % 0.5 % (0.0-1.0); EOSINOPHILS # (AUTO) 0.1 (0.0-0.4); EOSINOPHILS % 1.8 % (0.0-6.0); HEMATOCRIT 36.5 % (38.2-49.6); HEMOGLOBIN 12.7 g/dL (14.0-18.0); LYMPHOCYTES # (AUTO) 0.7 (1.0-3.2); LYMPHOCYTES % 12.6 % (18.0-39.1); MEAN CORPUSCULAR HEMOGLOBIN 33.5 pg (28-32); MEAN CORPUSCULAR HGB CONC 34.8 g/dL (31-35); MEAN CORPUSCULAR VOLUME 96.3 fL (81-99); MONOCYTES # (AUTO) 0.3 (0.2-0.8); MONOCYTES % 4.8 % (4.4-11.3); NEUTROPHILS # (AUTO) 4.5 (2.1-6.9); NEUTROPHILS % 80.1 % (38.7-80.0); PLATELET COUNT 121 x10e3/uL (140-360); RED BLOOD COUNT 3.79 x10e6/uL (4.3-5.7); RED CELL DISTRIBUTION WIDTH 12.5 % (11.7-14.4); WHITE BLOOD COUNT 5.57 x10e3/uL (4.8-10.8)
[2024-12-16 13:40] VITALS: PULSE 58; RESP 16; O2SAT 99
[2024-12-16 13:44] LABS: ALANINE AMINOTRANSFERASE 12 IU/L (0-55); ALBUMIN 3.9 g/dL (3.5-5.0); ALBUMIN/GLOBULIN RATIO 1.2 (0.8-2.0); ALKALINE PHOSPHATASE 59 IU/L (40-150); ANION GAP 13.9 mmol/L (8-16); BILIRUBIN,TOTAL 0.6 mg/dL (0.2-1.2); BLOOD UREA NITROGEN 22 mg/dL (7-26); BUN/CREATININE RATIO 26 (6-25); CALCIUM 8.9 mg/dL (8.4-10.2); CARBON DIOXIDE 26 mmol/L (22-29); CHLORIDE 103 mmol/L (98-107); CREATININE, SERUM 0.86 mg/dL (0.72-1.25); EST GLOMERULAR FILTRATION RATE 88 ML/MIN (>=60); GLUCOSE 156 mg/dL (74-118); POTASSIUM 3.9 mmol/L (3.5-5.1); SODIUM 139 mmol/L (136-145); TOTAL PROTEIN 7.2 g/dL (6.5-8.1)
[2024-12-16 13:48] LABS: INR 1.18; PROTHROMBIN TIME 15.7 seconds (11.9-14.5)
[2024-12-16 13:51] LABS: TROPONIN I < 0.001 ng/mL (0-0.300)
[2024-12-16] MEDS ORDERED: IOPAMIDOL 370 MG/ML 100 ML INFUS..BTL INJ ONE (13:55)
[2024-12-16] MEDS ORDERED: SODIUM CHLORIDE 0.9% 100 ML ONE (13:55)
[2024-12-16] MEDS: ONDANSETRON HCL INJ 2MG/ML 2ML 2 MG/ML VIAL IV STA (13:57)
[2024-12-16] MEDS: MECLIZINE HCL 12.5 MG TAB PO ONE (13:59)
[2024-12-16 17:11] LABS: CLARITY,URINE CLEAR (CLEAR); COLOR,URINE YELLOW (YELLOW)
[2024-12-16 17:12] LABS: BILIRUBIN,URINE NEGATIVE (NEGATIVE); GLUCOSE, URINE 1+ (NEGATIVE); KETONES,URINE NEGATIVE (NEGATIVE); LEUKOCYTE ESTERASE ,URINE NEGATIVE (NEGATIVE); NITRITE,URINE NEGATIVE (NEGATIVE); PH,URINE 8.5 (5 - 7); PROTEIN,URINE DIPSTICK NEGATIVE (NEGATIVE); URINE UROBILINOGEN 1 mg/dL (0.2 - 1)
[2024-12-16 17:17] LABS: EPITHELIAL CELLS,URINE RARE /LPF
[2024-12-16] MEDS ORDERED: MECLIZINE HCL25 MG PO (18:01)
== END 2024-12-16 18:13 | disposition home or self-care (01) ==
LOC: ER 13:10
DX: R42 Dizziness and giddiness (principal); R11.2 Nausea with vomiting, unspecified; E11.65 Type 2 diabetes mellitus with hyperglycemia; I10 Essential (primary) hypertension; I48.91 Unspecified atrial fibrillation; E78.5 Hyperlipidemia, unspecified; I25.10 Atherosclerotic heart disease of native coronary artery without angina pectoris; R94.31 Abnormal electrocardiogram [ECG] [EKG]; Z95.810 Presence of automatic (implantable) cardiac defibrillator
CPT/HCPCS: 36415; 70496; 70498; 71045; 80053; 81001; 83880; 84484; 85025; 85610; 85730; 93005; 99284; J2405; J7050; J8597; Q9967

== ENCOUNTER 2025-04-30 10:25 | Emergency (ER) | payer MEDICARE ==
[~2025-04-30] VITALS: Ht 172.7 cm; Wt 68.0 kg
[~2025-04-30 10:25] MED LIST changes: +ACYCLOVIR800 MG PO; +DOXYCYCLINE HY100 MG PO; +MECLIZINE HCL25 MG PO
[2025-04-30] MEDS: SODIUM CHLORIDE 0.9% 1000ML 1,000 ML IV STA (11:42)
[2025-04-30] MEDS: ONDANSETRON HCL INJ 2MG/ML 2ML 2 MG/ML VIAL IV STA (11:43)
[2025-04-30 11:45] LABS: BASOPHILS % 0.6 % (0.0-1.0); EOSINOPHILS # (AUTO) 0.2 (0.0-0.4); EOSINOPHILS % 4.8 % (0.0-6.0); HEMATOCRIT 36.3 % (38.2-49.6); HEMOGLOBIN 12.7 g/dL (14.0-18.0); LYMPHOCYTES # (AUTO) 0.7 (1.0-3.2); LYMPHOCYTES % 14.2 % (18.0-39.1); MEAN CORPUSCULAR HEMOGLOBIN 33.2 pg (28-32); MEAN CORPUSCULAR VOLUME 94.8 fL (81-99); MONOCYTES # (AUTO) 0.3 (0.2-0.8); MONOCYTES % 6.4 % (4.4-11.3); NEUTROPHILS # (AUTO) 3.7 (2.1-6.9); NEUTROPHILS % 73.8 % (38.7-80.0); PLATELET COUNT 131 x10e3/uL (140-360); RED BLOOD COUNT 3.83 x10e6/uL (4.3-5.7); RED CELL DISTRIBUTION WIDTH 12.9 % (11.7-14.4)
[2025-04-30 11:53] LABS: INR 1.27
[2025-04-30 12:03] LABS: ALBUMIN/GLOBULIN RATIO 1.2 (0.8-2.0); ANION GAP 13.9 mmol/L (8-16); BILIRUBIN,TOTAL 1.3 mg/dL (0.2-1.2); CREATININE, SERUM 0.91 mg/dL (0.72-1.25); POTASSIUM 3.9 mmol/L (3.5-5.1); TOTAL PROTEIN 7.3 g/dL (6.5-8.1)
[2025-04-30 12:10] LABS: TROPONIN I 0.004 ng/mL (0-0.300)
[2025-04-30] MEDS ORDERED: IOPAMIDOL 370 MG/ML 100 ML INFUS..BTL INJ ONE (12:10)
[2025-04-30 12:27] LABS: MAGNESIUM 1.8 MG/DL (1.3-2.1)
[2025-04-30 14:18] LABS: BILIRUBIN,URINE NEGATIVE (NEGATIVE); CLARITY,URINE CLEAR (CLEAR); COLOR,URINE YELLOW (YELLOW); GLUCOSE, URINE NEGATIVE (NEGATIVE); KETONES,URINE NEGATIVE (NEGATIVE); LEUKOCYTE ESTERASE ,URINE NEGATIVE (NEGATIVE); NITRITE,URINE NEGATIVE (NEGATIVE); PH,URINE 5.5 (5 - 7); PROTEIN,URINE DIPSTICK NEGATIVE (NEGATIVE); URINE UROBILINOGEN 0.2 mg/dL (0.2 - 1)
[2025-04-30 14:49] LABS: BACTERIA,URINE RARE /HPF; EPITHELIAL CELLS,URINE RARE /LPF; MUCUS,URINE FEW; RBC,URINE 0-5 /HPF (0-5); WBC,URINE (MAN) 0-5 /HPF (0-5)
[2025-04-30 15:00] VITALS: PULSE 87; RESP 18; TEMP 98.2; O2SAT 98
[2025-04-30] MEDS ORDERED: ONDANSETRON ODT4 MG PO (15:00)
[2025-04-30] MEDS ORDERED: DICYCLOMINE HCL20 MG PO (15:00)
== END 2025-04-30 15:09 | disposition home or self-care (01) ==
LOC: ER 10:40
DX: R42 Dizziness and giddiness (principal); R11.2 Nausea with vomiting, unspecified; R10.30 Lower abdominal pain, unspecified; I10 Essential (primary) hypertension; E11.65 Type 2 diabetes mellitus with hyperglycemia; I48.91 Unspecified atrial fibrillation; E78.5 Hyperlipidemia, unspecified; I25.10 Atherosclerotic heart disease of native coronary artery without angina pectoris; R94.31 Abnormal electrocardiogram [ECG] [EKG]; Z95.810 Presence of automatic (implantable) cardiac defibrillator
CPT/HCPCS: 36415; 70450; 71045; 74177; 80053; 81001; 82550; 83735; 84484; 85025; 85610; 85730; 93005; 99284; J2405; J2470; J7030; Q9967